=== PATIENT | male | born 1940 | race Caucasian/White ===

== ENCOUNTER 2018-09-06 09:07 | Emergency (ER) | payer OTHER, BC ==
[2018-09-06] MEDS ORDERED: LIDOCAINE 1% MPF 30 ML VIAL ONE (09:29)
--- NOTE | 2018-09-06 09:49 | RAD REPORT ---
EXAM DESCRIPTION: CT - Facial Bones W/ Mpr - 09/06/2018 9:32 am CLINICAL HISTORY: Fall, facial trauma COMPARISON: CT head same date TECHNIQUE: Axial 2 millimeter thick images of the facial bones were obtained with sagittal and coron al reconstruction imaging. All CT scans are performed using dose optimization technique as appropriate and may include automated exposure control or mA/KV adjustment according to patient size. FINDINGS: Mastoid air cells are clear. No skull base fracture. Minimal chronic mucosal thickening of the maxillary sinuses noted. Trace amount of fluid is present in the left maxillary sinus. This is f avored to be unrelated to the current trauma presentation. No sinus wall or orbital wall fracture is identifiable. Zygomatic arches are intact. No globe or orbital content injury seen. Patient has soft tissue injury of the nose. Nondisplaced nasal bone fracture is present. Deviation of the nasal septum is present without fracture identifiable. This is likely a chronic presentation for the patient. IMPRESSION: Nondisplaced nasal bone fracture with soft tissue wound. No other facial fracture confirmed. Minimal sinus disease is present.
--- NOTE | 2018-09-06 09:52 | RAD REPORT ---
EXAM DESCRIPTION: CT - CTHCSPWOC - 09/06/2018 9:32 am CLINICAL HISTORY: Trip and fall, head and neck injury COMPARISON: None. TECHNIQUE: Axial 5 mm thick images of the head were obtained. Axial 2 mm thick images of the cervic al spine were obtained with sagittal and coronal reconstruction images generated and reviewed. All CT scans are performed using dose optimization technique as appropriate and may include automated exposure control or mA/KV adjustment according to patient size. FINDINGS: No intracranial hemorrhage, mass, edema or acute intracranial finding. No suspicion for ac fernando infarction. Minimal atrophy and chronic ischemic changes present. Ventricles are in proportion to any volume loss. Mastoid air cells are clear. No acute paranasal sinus finding. No globe or orbit ab normality seen. Soft tissue injury is seen in the upper nose with no displaced nasal bone fracture se en. Patient has nasal septum deviation that is chronic. Cervical bodies are normal in height. No fracture changes. There is minimal retrolisthesis of C5 on C 6. C5-6 degenerative disc disease is present. C6-7 disc space narrowing also present. No fracture or acute bony abnormality. Prominent facet joint degenerative changes are present. Mild bony foraminal e ncroachment on the left at C3-4, moderate foraminal encroachment right side C4-5 and moderate bilater al C5-6 foraminal encroachment. Moderate C6-7 bony foraminal encroachment present. No paraspinal mass or hematoma. IMPRESSION: No hemorrhage, edema or acute intracranial finding. Mild atrophy and chronic ischemic ch anges are present. Nasal bone and soft tissue injury evident. Facial bone, sinus and/or but findings are separately deta iled. Cervical spine degenerative change present as detailed. No fracture or acute finding.
--- NOTE | 2018-09-06 13:12 | ER ---
Nurse's Notes [facility] Name: Michael Laboy Age: 78 yrs Sex: Male : 1940 Arrival Date: 09/06/2018 Time: 09:08 Bed 5 Private MD: Diagnosis: Superficial injury of head;Concussion;Facial Laceration Presentation: 09/06 09:11 Presenting complaint: Patient states: Mechanical fall from standing, landed on left hb side of face. Negative LOC. Laceration to nose, bottom lip, and skin tear to top of left wrist noted. Care prior to arrival: None. Mechanism of Injury: Fall from standing position. 09:11 Acuity: ELIZABETH 2 09:11 Method Of Arrival: Ambulatory 09:11 Trauma event details: Injury occurred in the [facility], Injury occurred: at home. Injury occurred: September 06, 2018. 09:34 Transition of care: patient was not received from another setting of care. Onset of ph symptoms was September 06, 2018. Risk Assessment: Do you want to hurt yourself or someone else? Patient reports no desire to harm self or others. Initial Sepsis Screen: Does the patient meet any 2 criteria? No. Patient's initial sepsis screen is negative. Does the patient have a suspected source of infection? No. Patient's initial sepsis screen is negative. Trauma Activation: Alert Physician: ED Physician; Name: Dr Sandoval; Notified At: 09:11; Arrived At: 09:11 Physician: General Surgeon; Name: ; Notified At: 09:11; Arrived At: Physician: Radiology; Name: Kamryn Raines; Notified At: 09:11; Arrived At: 09:12 Physician: Respiratory; Name: ; Notified At: 09:11; Arrived At: Physician: Lab; Name: ; Notified At: 09:11; Arrived At: Historical: - Allergies: 09:19 PENICILLINS; hb - Home Meds: 09:19 Lisinopril Oral [Active]; hb - PMHx: 09:19 Hypertension; hb - PSHx: 09:19 Appendectomy; Cholecystectomy; shoulder; hb - Immunization history:: Last tetanus immunization: unknown. - Social history:: Smoking status: Patient/guardian denies using tobacco. - Family history:: not pertinent. - Ebola Screening: : No symptoms or risks identified at this time. - Hospitalizations: : No recent hospitalization is reported. Screenin:18 Abuse screen: Denies threats or abuse. Denies injuries from another. Tuberculosis hb screening: No symptoms or risk factors identified. 09:34 Nutritional screening: No deficits noted. Fall Risk Fall in past 12 months (25 points). ph No secondary diagnosis (0 pts). No IV (0 pts). Ambulatory Aid- None/Bed Rest/Nurse Assist (0 pts). Gait- Normal/Bed Rest/Wheelchair (0 pts) Mental Status- Oriented to own ability (0 pts). Total Guzman Fall Scale indicates Low Risk Score (25-44 pts). Fall prevention measures have been instituted. Side Rails Up X 2 Family Present and informed to notify staff if they need to leave bedside As available Patient and Family Educated on Fall Prevention Program and strategies. Primary Survey: 09:17 A: Airway: patent, No supplemental oxygen in use on arrival. Oral cavity: clear, hb Trachea midline. Breathing/Chest: Respiratory pattern: regular, Respiratory effort: spontaneous, unlabored, Chest inspection: symmetrical rise and fall of the chest. Circulation: Skin color: pink, Skin temperature: warm, dry. Disability Alert. 10:57 Reassessment Breathing/Chest Respiratory pattern Regular Respiratory effort Spontaneous ph Unlabored Disability Alert. Secondary Survey: 10:58 HEENT: Face Other lacerations noted to nose and lower lip. Gastrointestinal: No ph deficits noted. Musculoskeletal: No deficits noted. Injury Description: Laceration sustained to nose and mouth is 0.5 to 2.5 cm long. Assessment: 09:30 General: Appears in no apparent distress. uncomfortable, Behavior is calm, cooperative, ph appropriate for age. Pain: Complains of pain in face. Neuro: Level of Consciousness is awake, alert, obeys commands, Oriented to person, place, time, situation, Denies blurred vision dizziness. Cardiovascular: Capillary refill < 3 seconds Patient's skin is warm and dry. Respiratory: Airway is patent Respiratory effort is even, unlabored, Respiratory pattern is regular, symmetrical, Denies shortness of breath pain with respiration. GI: No signs and/or symptoms were reported involving the gastrointestinal system. Patient currently denies nausea, vomiting. Derm: Skin is healthy with good turgor, Skin is pink, warm \\T\\ dry. Musculoskeletal: Circulation, motion, and sensation intact. Range of motion: intact in all extremities. Injury Description: Laceration sustained to nose and mouth. 10:50 Reassessment: Patient appears in no apparent distress at this time. Patient is alert, ph oriented x 3, equal unlabored respirations, skin warm/dry/pink. Pt ambulated to restroom w/ steady gait, reports "a little" dizziness, denies nausea or SOB. 11:25 Reassessment: Patient appears in no apparent distress at this time. Patient and/or ph family updated on plan of care and expected duration. Pain level reassessed. Patient is alert, oriented x 3, equal unlabored respirations, skin warm/dry/pink. ERP at bedside to suture lacerations, pt tolerating well. 12:24 Reassessment: Patient appears in no apparent distress at this time. Patient and/or ph family updated on plan of care and expected duration. Pain level reassessed. Patient is alert, oriented x 3, equal unlabored respirations, skin warm/dry/pink. Skin tear to L wrist/forearm cleaned and closed w/ steri-strips, pt tolerated well, awaiting d/c, at bedside. 13:20 Reassessment: Patient appears in no apparent distress at this time. Patient and/or ph family updated on plan of care and expected duration. Pain level reassessed. Patient is alert, oriented x 3, equal unlabored respirations, skin warm/dry/pink. Pt c/o pain in L rib area that is worse w/ deep breathing, ERP notified, CXR ordered, d/c pending CXR. 14:00 Reassessment: Patient appears in no apparent distress at this time. Patient and/or ph family updated on plan of care and expected duration. Pain level reassessed. Patient is alert, oriented x 3, equal unlabored respirations, skin warm/dry/pink. D/C pending CXR results. 14:55 Reassessment: Patient appears in no apparent distress at this time. Patient and/or ph family updated on plan of care and expected duration. Pain level reassessed. Patient is alert, oriented x 3, equal unlabored respirations, skin warm/dry/pink. Pt d/c home w/ SO. Vital Signs: 09:16 BP 162 / 69; Pulse 88; Resp 17; Temp 98; Pulse Ox 100% on R/A; Weight 86.18 kg; Height hb 5 ft. 9 in. (175.26 cm); Pain 5/10; 10:05 BP 158 / 68; Pulse 81; Resp 18; Pulse Ox 98% on R/A; ph 11:15 BP 142 / 78; Pulse 82; Resp 18; Pulse Ox 98% ; ph 12:30 BP 136 / 72; Pulse 75; Resp 18; Pulse Ox 99% on R/A; ph 13:32 BP 134 / 70; Pulse 78; Resp 18; Temp 97.6; Pulse Ox 99% on R/A; ph 14:30 BP 135 / 68; Pulse 76; Resp 18; Temp 97.8; Pulse Ox 99% on R/A; ph 09:16 Body Mass Index 28.06 (86.18 kg, 175.26 cm) hb [place] Coma Score: 09:16 Eye Response: spontaneous(4). Verbal Response: oriented(5). Motor Response: obeys hb commands(6). Total: 15. 10:05 Eye Response: spontaneous(4). Verbal Response: oriented(5). Motor Response: obeys ph commands(6). Total: 15. 11:15 Eye Response: spontaneous(4). Verbal Response: oriented(5). Motor Response: obeys ph commands(6). Total: 15. 12:30 Eye Response: spontaneous(4). Verbal Response: oriented(5). Motor Response: obeys ph commands(6). Total: 15. 13:32 Eye Response: spontaneous(4). Verbal Response: oriented(5). Motor Response: obeys ph commands(6). Total: 15. 14:30 Eye Response: spontaneous(4). Verbal Response: oriented(5). Motor Response: obeys ph commands(6). Total: 15. Trauma Score (Adult): 09:16 Eye Response: spontaneous(1); Verbal Response: oriented(1); Motor Response: obeys hb commands(2); Systolic BP: > 89 mm Hg(4); Respiratory Rate: 10 to 29 per min(4); Juan Score: 15; Trauma Score: 12 10:05 Eye Response: spontaneous(1); Verbal Response: oriented(1); Motor Response: obeys ph commands(2); Systolic BP: > 89 mm Hg(4); Respiratory Rate: 10 to 29 per min(4); Juan Score: 15; Trauma Score: 12 11:15 Eye Response: spontaneous(1); Verbal Response: oriented(1); Motor Response: obeys ph commands(2); Systolic BP: > 89 mm Hg(4); Respiratory Rate: 10 to 29 per min(4); [place] Score: 15; Trauma Score: 12 12:30 Eye Response: spontaneous(1); Verbal Response: oriented(1); Motor Response: obeys ph commands(2); Systolic BP: > 89 mm Hg(4); Respiratory Rate: 10 to 29 per min(4); Juan Score: 15; Trauma Score: 12 13:32 Eye Response: spontaneous(1); Verbal Response: oriented(1); Motor Response: obeys ph commands(2); Systolic BP: > 89 mm Hg(4); Respiratory Rate: 10 to 29 per min(4); Juan Score: 15; Trauma Score: 12 14:30 Eye Response: spontaneous(1); Verbal Response: oriented(1); Motor Response: obeys ph commands(2); Systolic BP: > 89 mm Hg(4); Respiratory Rate: 10 to 29 per min(4); Juan Score: 15; Trauma Score: 12 ED Course: 09:08 Patient arrived in ED. as 09:11 Aleksandar Sandoval MD is Attending Physician. rn 09:11 Naveed Jimenez, ROGELIO is Primary Nurse. bp 09:16 Triage completed. hb 09:18 Arm band placed on right wrist. hb 09:27 CT completed. Patient tolerated procedure well. Patient moved to CT via stretcher. sj Patient moved back from CT. 09:32 CT Head C Spine In Process Unspecified. EDMS 09:32 CT Facial Bones W/O Con In Process Unspecified. EDMS 09:34 Patient maintains SpO2 saturation greater than 95% on room air. ph 09:35 Patient has correct armband on for positive identification. Bed in low position. Call ph light in reach. Side rails up X 1. Pulse ox on. NIBP on. Warm blanket given. 09:35 Thermoregulation: warm blanket given to patient. ph 09:43 EKG done, by lead medical technologist. reviewed by Aleksandar Sandoval MD. at1 10:45 Wound care: to laceration located on face and nose was cleaned with irrigated with jb1 normal saline, Patient tolerated well. 11:45 Assist provider with laceration repair on mouth and nose that was between 2.6 to 7.5 cm ph using sutures. Set up tray. Performed by Roger BYRNE Dressed with Neosporin, Patient tolerated well. 12:22 Dressings: Steri strips 1/8 " X 1;. Wound care: to skin tear located on dorsal aspect ph of left forearm was cleaned with Hibiclens, dressed with. 14:16 XRAY Chest (1 view) In Process Unspecified. EDMS 14:57 Patient did not have IV access during this emergency room visit. ph Administered Medications: 11:20 Drug: Lidocaine (1 %) 1 vials Volume: 5 ml; Route: Infiltration; ph 14:58 Follow up: Response: No adverse reaction ph 13:25 Drug: Tetanus-Diphtheria Toxoid Adult 0.5 ml {Solar Installer Technician: LUVHAN. Exp: ph 07/24/2021. Lot #: [id number]. } Route: IM; Site: left deltoid; 14:57 Follow up: Response: No adverse reaction ph Intake: 09:35 PO: 0ml; Total: 0ml. ph 10:05 PO: 0ml; Total: 0ml. ph 13:32 PO: 0ml; Total: 0ml. ph Output: 09:35 Urine: 0ml; Total: 0ml. ph 10:05 Urine: 0ml; Total: 0ml. ph 13:32 Urine: 0ml; Total: 0ml. ph Outcome: 13:12 Discharge ordered by . rn 14:55 Discharged to home ambulatory, with significant other. ph 14:55 Condition: good 14:55 Discharge instructions given to patient, significant other, Instructed on discharge instructions, follow up and referral plans. Demonstrated understanding of instructions, follow-up care. 14:57 Patient's length of stay in the Emergency Department was greater than 2 hours. see ph reassessment tabPatient's length of stay extended due to 14:58 Patient left the ED. ph Signatures: Dispatcher [employer] EDMS Ramón Candelario [email or web address] Yanna Monet Amelia as Nieto, Roman, MD MD rn Jodi Camp, superintendent division EKG Tat1 Maryse Holden RN RN ph Bridget Chua, RN RN Naveed Jimenez RN RN bp Corrections: (The following items were deleted from the chart) 09:18 09:16 BP 162 / 69; Pulse 88bpm; Resp 17bpm; Pulse Ox 100% RA; Temp 98F; Pain 5/10; hb hb 09:32 09:11 Trauma Activation: Alert; ED Physician Dr Sandoval notified at 09:11, hb arrived at 09:11; General Surgeon notified at 09:11; Radiology notified at 09:11; Respiratory notified at 09:11; Lab notified at 09:11 hb 10:57 09:30 Injury Description: Laceration sustained to nose, left cheek and mouth ph ph 11:25 10:50 Reassessment: Patient appears in no apparent distress at this time. Patient is ph alert, oriented x 3, equal unlabored respirations, skin warm/dry/pink. Patient is alert/active/playful, equal unlabored respirations, skin warm/dry/pink. Pt ambulated to restroom w/ steady gait, reports "a little" dizziness, denies nausea or SOB ph
--- NOTE | 2018-09-06 13:12 | EDPHYS ---
Physician Documentation [facility] Name: Michael Laboy Age: 78 yrs Sex: Male : 1940 Arrival Date: 09/06/2018 Time: 09:08 Bed 5 Private MD: ED Physician Aleksandar Sandoval HPI: 09/06 09:16 This 78 yrs old Male presents to ER via Ambulatory with complaints of Fall rn Injury. 09:16 Details of fall: The patient fell from an upright position. Onset: The symptoms/episode rn began/occurred just prior to arrival. Associated injuries: The patient sustained injury to the head. Severity of symptoms: At their worst the symptoms were mild, in the emergency department the symptoms have improved. The patient has not experienced similar symptoms in the past. Reports tripped fell forward, hit face, not on blood thinners, not sure if he passed out or not, unknown tetanus status. Scraped arm but doesn't feel broken, "just skin tear". . Historical: - Allergies: 09:19 PENICILLINS; hb - Home Meds: 09:19 Lisinopril Oral [Active]; hb - PMHx: 09:19 Hypertension; hb - PSHx: 09:19 Appendectomy; Cholecystectomy; shoulder; hb - Immunization history:: Last tetanus immunization: unknown. - Social history:: Smoking status: Patient/guardian denies using tobacco. - Family history:: not pertinent. - Ebola Screening: : No symptoms or risks identified at this time. - Hospitalizations: : No recent hospitalization is reported. ROS: 09:16 Constitutional: Negative for fever, chills, and weight loss, Eyes: Negative for injury, rn pain, redness, and discharge, ENT: + nasal and oral injury Neck: Negative for injury, pain, and swelling, Cardiovascular: Negative for chest pain, palpitations, and edema, Respiratory: Negative for shortness of breath, cough, wheezing, and pleuritic chest pain, Abdomen/GI: Negative for abdominal pain, nausea, vomiting, diarrhea, and constipation, MS/Extremity: Negative for injury and deformity, Skin: + skin tear and abrasions Neuro: Negative for headache, weakness, numbness, tingling, and seizure. Exam: 09:16 Constitutional: This is a well developed, well nourished patient who is awake, alert, rn and in no acute distress. Head/Face: Normocephalic, + mild facial swelling and trauma Eyes: Pupils equal round and reactive to light, extra-ocular motions intact. Lids and lashes normal. Conjunctiva and sclera are non-icteric and not injected. Cornea within normal limits. Periorbital areas with no swelling, redness, or edema. ENT: + nasal swelling with contusion and 3 cm linear superficial laceration along left lateral side. No septal hematoma. 1cm superficial laceration middle of bottom lip, no active bleeding. Neck: NO midline tenderness Cardiovascular: Regular rate and rhythm with a normal S1 and S2. No gallops, murmurs, or rubs. Normal PMI, no JVD. No pulse deficits. Respiratory: Lungs have equal breath sounds bilaterally, clear to auscultation and percussion. No rales, rhonchi or wheezes noted. No increased work of breathing, no retractions or nasal flaring. Abdomen/GI: soft, non-tender MS/ Extremity: Pulses equal, no cyanosis. Neurovascular intact. Full, normal range of motion. Equal circumference. 2cm irregular abrasion/skin tear to left dorsal wrist Neuro: Awake and alert, GCS 15, oriented to person, place, time, and situation. Cranial nerves II-XII grossly intact. Motor strength 5/5 in all extremities. Sensory grossly intact. Cerebellar exam normal. Vital Signs: 09:16 BP 162 / 69; Pulse 88; Resp 17; Temp 98; Pulse Ox 100% on R/A; Weight 86.18 kg; Height hb 5 ft. 9 in. (175.26 cm); Pain 5/10; 10:05 BP 158 / 68; Pulse 81; Resp 18; Pulse Ox 98% on R/A; ph 11:15 BP 142 / 78; Pulse 82; Resp 18; Pulse Ox 98% ; ph 12:30 BP 136 / 72; Pulse 75; Resp 18; Pulse Ox 99% on R/A; ph 13:32 BP 134 / 70; Pulse 78; Resp 18; Temp 97.6; Pulse Ox 99% on R/A; ph 14:30 BP 135 / 68; Pulse 76; Resp 18; Temp 97.8; Pulse Ox 99% on R/A; ph 09:16 Body Mass Index 28.06 (86.18 kg, 175.26 cm) hb Juan Coma Score: 09:16 Eye Response: spontaneous(4). Verbal Response: oriented(5). Motor Response: obeys hb commands(6). Total: 15. 10:05 Eye Response: spontaneous(4). Verbal Response: oriented(5). Motor Response: obeys ph commands(6). Total: 15. 11:15 Eye Response: spontaneous(4). Verbal Response: oriented(5). Motor Response: obeys ph commands(6). Total: 15. 12:30 Eye Response: spontaneous(4). Verbal Response: oriented(5). Motor Response: obeys ph commands(6). Total: 15. 13:32 Eye Response: spontaneous(4). Verbal Response: oriented(5). Motor Response: obeys ph commands(6). Total: 15. 14:30 Eye Response: spontaneous(4). Verbal Response: oriented(5). Motor Response: obeys ph commands(6). Total: 15. Trauma Score (Adult): 09:16 Eye Response: spontaneous(1); Verbal Response: oriented(1); Motor Response: obeys hb commands(2); Systolic BP: > 89 mm Hg(4); Respiratory Rate: 10 to 29 per min(4); Juan Score: 15; Trauma Score: 12 10:05 Eye Response: spontaneous(1); Verbal Response: oriented(1); Motor Response: obeys ph commands(2); Systolic BP: > 89 mm Hg(4); Respiratory Rate: 10 to 29 per min(4); [place] Score: 15; Trauma Score: 12 11:15 Eye Response: spontaneous(1); Verbal Response: oriented(1); Motor Response: obeys ph commands(2); Systolic BP: > 89 mm Hg(4); Respiratory Rate: 10 to 29 per min(4); [place] Score: 15; Trauma Score: 12 12:30 Eye Response: spontaneous(1); Verbal Response: oriented(1); Motor Response: obeys ph commands(2); Systolic BP: > 89 mm Hg(4); Respiratory Rate: 10 to 29 per min(4); Juan Score: 15; Trauma Score: 12 13:32 Eye Response: spontaneous(1); Verbal Response: oriented(1); Motor Response: obeys ph commands(2); Systolic BP: > 89 mm Hg(4); Respiratory Rate: 10 to 29 per min(4); Juan Score: 15; Trauma Score: 12 14:30 Eye Response: spontaneous(1); Verbal Response: oriented(1); Motor Response: obeys ph commands(2); Systolic BP: > 89 mm Hg(4); Respiratory Rate: 10 to 29 per min(4); Juan Score: 15; Trauma Score: 12 Laceration: 11:58 Wound Repair of 3cm ( 1.2in ) subcutaneous laceration to nose. Irregularly shaped.. cp Distal neuro/vascular/tendon intact. Anesthesia: Wound infiltrated with 6 mls of 1% lidocaine. Wound prep: Moderate cleansing by me. Skin closed with 7 6-0 Prolene using interrupted sutures and sterile technique. Dressed with Bacitracin. Patient tolerated well. 11:58 Wound Repair of 1cm ( 0.4in ) subcutaneous laceration to inner lower lip. Linear cp shaped.. Distal neuro/vascular/tendon intact. Anesthesia: Wound infiltrated with 1 mls of 1% lidocaine. Wound prep: Moderate cleansing by me. Skin closed with 4 5-0 Vicryl using interrupted sutures and sterile technique. Patient tolerated well. MDM: 09:11 Patient medically screened. rn 10:33 ED course: Ct head/face/cspine only show small non-displaced nasal fracture, will rn observe for superficial head injury, will require sutures of inner lip and nasal laceration.. 12:20 Differential diagnosis: abrasion, closed head injury, contusion. rn 13:11 Data reviewed: vital signs, nurses notes, radiologic studies, CT scan, and as a result, rn I will discharge patient. Counseling: I had a detailed discussion with the patient and/or guardian regarding: the historical points, exam findings, and any diagnostic results supporting the discharge/admit diagnosis, radiology results, the need for outpatient follow up, to return to the emergency department if symptoms worsen or persist or if there are any questions or concerns that arise at home. Response to treatment: the patient's condition has returned to base line, and as a result, I will discharge patient. Special discussion: Based on the patient's history, exam and DX evaluation, there is no indication for emergent intervention or inpatient [place]. It is understood by the patient/guardian that if the SXs persist or worsen they need to return immediately for re-evaluation. I discussed with the patient/guardian in detail that at this point there is no indication for admission to the hospital. It is understood, however, that if the symptoms persist or worsen the patient needs to return immediately for re-evaluation. ED course: Observed for 4 hours in ER, no new symptoms, back to baseline, sutured, skin tear cleansed and steri-stripped, will dc home with return precautions.. 09/06 09:15 Order name: CT Head C Spine; Complete Time: 09:55 rn 09/06 09:15 Order name: CT Facial Bones W/O Con; Complete Time: 09:55 rn 09/06 09:15 Order name: EKG; Complete Time: 09:16 rn 09/06 13:19 Order name: XRAY Chest (1 view); Complete Time: 17:47 rn 09/06 09:15 Order name: EKG - Nurse/Tech; Complete Time: 09:44 rn 09/06 09:16 Order name: Suture Tray at Bedside; Complete Time: 09:23 rn Administered Medications: 11:20 Drug: Lidocaine (1 %) 1 vials Volume: 5 ml; Route: Infiltration; ph 14:58 Follow up: Response: No adverse reaction ph 13:25 Drug: Tetanus-Diphtheria Toxoid Adult 0.5 ml {[employer] Operator: [employer]. Exp: ph 07/24/2021. Lot #: [id number]. } Route: IM; Site: left deltoid; 14:57 Follow up: Response: No adverse reaction ph Disposition: 17:47 Co-signature as Attending Physician, Aleksandar Sandoval MD. rn Disposition: 09/06/18 13:12 Discharged to Home. Impression: Superficial injury of head, Concussion, Facial Laceration. - Condition is Stable. - Discharge Instructions: Concussion, Adult, Head Injury, Adult, Facial Laceration, Skin Tear Care, Sutured Wound Care. - Medication Reconciliation Form, Thank You Letter, Antibiotic Education, Prescription Opioid Use form. - Follow up: Private Physician; When: As needed; Reason: Recheck today's complaints, Re-evaluation by your physician. - Problem is new. - Symptoms have improved. Signatures: Dispatcher [employer] EDMS Aleksandar Sandoval MD MD rn Hall, Patricia, RN RN ph Roger Roche PA PA cp Baxter, Heather, RN RN Corrections: (The following items were deleted from the chart) 14:58 13:12 09/06/2018 13:12 Discharged to Home. Impression: Superficial injury of head; ph Concussion; Facial Laceration. Condition is Stable. Forms are Medication Reconciliation Form, Thank You Letter, Antibiotic Education, Prescription Opioid Use. Follow up: Private Physician; When: As needed; Reason: Recheck today's complaints, Re-evaluation by your physician. Problem is new. Symptoms have improved. rn
--- NOTE | 2018-09-06 13:27 | EKG ---
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
[2018-09-06] MEDS ORDERED: TETANUS & DIPHTHERIA TOX,ADULT 0.5 ML VIAL ONE (13:28)
--- NOTE | 2018-09-06 14:49 | RAD REPORT ---
EXAM DESCRIPTION: RAD - Chest Single View - 09/06/2018 2:16 pm CLINICAL HISTORY: Chest pain, blunt force trauma COMPARISON: December 2009 chest film TECHNIQUE: AP portable chest image was obtained 1324 hours . FINDINGS: Lung volumes are low. Right hemidiaphragm elevation is present. A similar pattern was seen in 2010. No acute lung parenchymal process. Acute failure or volume overload are not suspected. Lung base pleural effusions or infiltrates could be masked. Heart size is normal range for shallow inspir ation portable exam. No measurable pleural effusion and no pneumothorax. No acute bony abnormality se en. No acute aortic findings suspected. IMPRESSION: No acute cardiopulmonary process. No suspicious change from 2009.
== END 2018-09-06 14:58 | disposition home or self-care (01) ==
LOC: ER 09:07
PROC: 0JQ10ZZ Repair Face Subcutaneous Tissue and Fascia, Open Approach (ICD-10-PCS; principal; 2018-09-06)
PROC: 0CQ1XZZ Repair Lower Lip, External Approach (ICD-10-PCS; 2018-09-06)
DX: S06.0X0A Concussion without loss of consciousness, initial encounter (principal); S01.511A Laceration without foreign body of lip, initial encounter; W01.0XXA Fall on same level from slipping, tripping and stumbling without subsequent striking against object, initial encounter; Y93.9 Activity, unspecified; Y92.9 Unspecified place or not applicable; Z88.0 Allergy status to penicillin; Z23 Encounter for immunization; I10 Essential (primary) hypertension
CPT/HCPCS: 70450; 70486; 71045; 72125; 76377; 90714; 93005; 99285

== ENCOUNTER 2018-09-13 08:34 | Emergency (ER) | payer OTHER, BC ==
--- OUTSIDE RECORDS SUMMARY | 2018-09-13 08:36 | XMS REPORT | Summary of Care ---
:1940 Author Organization [facility] Outpatient Imaging - [facility] Address [address] [place] [id number]- Encounter HQ Derickntr_lance(FIN) [id number] Date(s): 04/23/17 - 04/23/17 [facility] Outpatient Imaging - [address] [place] [address]- Discharge Disposition: Home or Self Care Attending Physician: Mahendra Dietz MD Vital Signs No data available for this section Problem List Condition Effective Dates Status Health Status Informant Hemorrhoids(Confirmed) Resolved Hernia(Confirmed) Resolved Loss of hair(Confirmed) Resolved Numbness(Confirmed) Resolved Allergies, Adverse Reactions, Alerts Substance Reaction Severity Status penicillins Active Medications No data available for this section Results No data available for this section Immunizations No data available for this section Procedures Procedure Date Related Diagnosis Body Site Appendectomy1 Colonoscopy2 EKG3 Excision of gallbladder4 Manual repair of hernia5, 6 Rotator cuff repair7 [id number] procedure in Social History Social History Type Response Substance Abuse Use: None. Sexual 1 Employment/School Status: Employed. Work/School description: [employer]. Alcohol Never Smoking Status Never smoker; Exposure to Tobacco Smoke None; Cigarette Smoking Last 365 Days No; Reg Smoking Cessation Counseling No 13 children Assessment and Plan No data available for this section
--- OUTSIDE RECORDS SUMMARY | 2018-09-13 08:36 | XMS REPORT | Summary of Care ---
:1940 Author Organization [facility] Primary Care [facility] Address [address], [address] [place] [address]- Encounter HQ Terry_lance(FIN) [id number] Date(s): 04/30/18 - 04/30/18 [facility] [address] [place] [phone] Discharge Disposition: Home or Self Care Attending Physician: Mahendra Dietz MD Vital Signs Most recent to oldest [Reference Range]: 1 Height 175.26 cm (04/30/18 2:01 PM) Temperature Oral [96.4-99.1 DegF] 98.0 DegF (04/30/18 2:01 PM) Blood Pressure [90-140/60-90 mmHg] 144/78 mmHg *HI* (04/30/18 2:01 PM) Peripheral Pulse Rate [60-100 bpm] 63 bpm (04/30/18 2:01 PM) Weight 87.182 kg (04/30/18 2:01 PM) Body Mass Index 28.38 m2 (04/30/18 2:01 PM) Problem List Condition Effective Dates Status Health Status Informant Hemorrhoids(Confirmed) Resolved Hernia(Confirmed) Resolved Loss of hair(Confirmed) Resolved Numbness(Confirmed) Resolved Allergies, Adverse Reactions, Alerts Substance Reaction Severity Status penicillins Active Medications Lumigan 0.01% ophthalmic solution 1 drp, BOTH EYES, Bedtime, # 5 mL, 4 Refill(s) Start Date: 04/30/18 Status: Ordered Results No data available for this section Immunizations Given and Recorded Vaccine Date Status Refusal Reason influenza virus vaccine, inactivated 09/07/17 Given Procedures Procedure Date Related Diagnosis Body Site Status Collection of venous blood by 04/30/18 Completed venipuncture Appendectomy1 Completed Colonoscopy2 Completed EKG3 Completed Excision of gallbladder4 Completed Manual repair of hernia5, 6 Completed Rotator cuff repair7 Completed [id number] procedure in [id number] Social History Social History Type Response Substance Abuse Use: None. Sexual 1 Employment/School Status: Employed. Work/School description: [employer]. Alcohol Never Smoking Status Never smoker; Exposure to Tobacco Smoke None; Cigarette Smoking Last 365 Days No; Reg Smoking Cessation Counseling No entered on: 04/30/18 13 children Assessment and Plan No data available for this section
--- OUTSIDE RECORDS SUMMARY | 2018-09-13 08:36 | XMS REPORT | Continuity of Care Document ---
:1940 Author Organization Interface Problems Problem Status Onset Classification Date Comments Source Date Reported Hemorrhoids Resolved Problem 05/03/2018 [facility] Hernia Resolved Problem 05/03/2018 [facility] Loss of hair Resolved Problem 05/03/2018 [facility] Numbness Resolved Problem 05/03/2018 [facility] Medications Medication Details Route Status Patient Ordering Order Source Instructions Provider Date bimatoprost 0.1 MG/ML 1 drp, BOTH Active 04/30/ Ophthalmic Solution EYES, 2018 [facility] [Lumigan] Bedtime, # Group 5 mL, 4 Refill(s) Hydrochlorothiazide See Active 10/09[facility] 12.5 MG / Lisinopril Instruction 2016 Medical 10 MG Oral Tablet s, TAKE 1 Group TABLET BY MOUTH DAILY., # 90 tab, 3 Refill(s), Pharmacy: [facility] [id number] Allergies, Adverse Reactions, Alerts Substance Category Reaction Severity Reaction Status Date Comments Source type Reported penicillins Assertion Drug Active allergy [facility] Group Immunizations Immunization Date Site Status Last Updated Comments Source Given influenza virus Right completed [facility] vaccine, 7 Deltoid Group inactivated Results Order Results Value Reference Date Interpretation Comments Source Name Range Humerus 2 Humerus 2 EXAM: XR LEFT HUMERUS 2 VIEWS 04/23 - [facility] views DX views DX - [place] DATE: 04/23/2017 2:57 PM CDT Read by: Charla Jiménez MD Dictated Date/time: 04/23/17 16:52 Electronically Signed by: Charla Jiménez MD 04/23/17 16:52 FINAL REPORT INDICATION: S42.213A Unspecified displaced fracture of surgical neck of unspecified humerus, initial encounter for closed fracture - S42.213A Unspecified displaced fracture of surgical neck of unspe cified humerus, initial encounter for closed fracture COMPARISON: None TECHNIQUE: AP and lateral radiographs of the humerus FINDINGS: No acute fracture or malalignment is identified. No soft tissue abnormality is identified. IMPRESSION: No acute abnormality. Vital Signs Vital Sign Value Date Comments Source BMI Calculated 28.38 04/30/2018 [facility] Weight 87.182 04/30/2018 [facility] Height 175.26 cm 04/30/2018 [facility] Systolic (mm Hg) 144 04/30/2018 [facility] Diastolic (mm Hg) 78 04/30/2018 [facility] Heart Rate 63 04/30/2018 [facility] Temperature Oral (F) 98.0 F 04/30/2018 [facility] Encounters Location Location Encounter Encounter Reason Attending ADM DC Status Source Details Type Number For Provider Date Date Visit Outpatient [id number] SHARAN04/23 [facility] Outpt Diag [id number] 04/23 [facility] [place] Outpatient [id number] SHARAN05/03 [facility] [place] Outpatient [id number] SHARAN09/07 [facility] Phone [phone] 10/09 10/11 Primary Message /2016 [facility] [place] Outpatient [id number] 04/30 [facility] Outpatient [id number] Sharan04/30 [facility] [place] Procedures Procedure Code Date Perfomer [place] [id number] 04/30/2018 [facility] venous blood by Group venipuncture Appendectomy<sup>1 [id number] 1950 [facility] </sup> [facility] Colonoscopy<sup>2< [id number] 2009 [facility] /sup> [facility] EKG<sup>3</sup> [id number] 1999 [facility] Excision of [id number] 1989 [facility] gallbladder<sup>4< [facility] /sup> Manual repair of [id number] [facility] hernia<sup>5, procedure in [facility] </sup> 1992 Rotator cuff [id number] 1989 [facility] repair<sup>7</sup> [facility] Appendectomy<sup>1 [id number] 1950 Medical </sup> Group Colonoscopy<sup>2< [id number] 2009 Medical /sup> Group EKG<sup>3</sup> [id number] 1999 Medical Group Excision of 20169974 1989 Medical gallbladder<sup>4< Group /sup> Manual repair of [id number] Medical hernia<sup>5, procedure in Group 6</sup> 1992 Rotator cuff [id number] 1989 Medical repair<sup>7</sup> Group
--- OUTSIDE RECORDS SUMMARY | 2018-09-13 08:36 | XMS REPORT | Summary of Care ---
:1940 Author Organization [facility] Primary Care [place] Address [address] [place] [address]- Encounter HQ Derickntr_aliwero(FIN) [id number] Date(s): 10/09/17 - 10/10/17 [facility] [address] [place] [address] [phone] Vital Signs No data available for this section Problem List Condition Effective Dates Status Health Status Informant Hemorrhoids(Confirmed) Resolved Hernia(Confirmed) Resolved Loss of hair(Confirmed) Resolved Numbness(Confirmed) Resolved Allergies, Adverse Reactions, Alerts Substance Reaction Severity Status penicillins Active Medications hydrochlorothiazide-lisinopril 12.5 mg-10 mg oral tablet See Instructions, TAKE 1 TABLET BY MOUTH DAILY., # 90 tab, 3 Refill(s), Pharmacy : [facility] [id number] Start Date: 10/09/17 Status: Ordered Results No data available for this section Immunizations Given and Recorded Vaccine Date Status Refusal Reason influenza virus vaccine, inactivated 09/07/17 Given Procedures Procedure Date Related Diagnosis Body Site Appendectomy1 Colonoscopy2 EKG3 Excision of gallbladder4 Manual repair of hernia5, 6 Rotator cuff repair7 [id number] procedure in [id number] Social History Social History Type Response Substance Abuse Use: None. Sexual 1 Employment/School Status: Employed. Work/School description: [employer]. Alcohol Never Smoking Status Never smoker; Exposure to Tobacco Smoke None; Cigarette Smoking Last 365 Days No; Reg Smoking Cessation Counseling No 13 children Assessment and Plan No data available for this section
--- NOTE | 2018-09-13 09:29 | EDPHYS ---
Physician Documentation [facility] Name: Michael Laboy Age: 78 yrs Sex: Male : 1940 Arrival Date: 09/13/2018 Time: 08:36 Bed 23 Private MD: ED Physician Roger Snider HPI: 09/13 09:26 This 78 yrs old Male presents to ER via Ambulatory with complaints of Suture jr8 Removal. 09:26 The patient has sutures on the face. Previous treatment: The patient was initially jr8 treated 7 day(s) ago. Sutures/saman progress: The patient has no c/o's. The wound is well-healing with no redness, swelling, discharge, or dehiscence reported. The patient has not experienced similar symptoms in the past. The patient has been recently seen by a physician:. had a fall causing laceration to nose. Repaired here. has been 7 days since incident . Historical: - Allergies: 08:54 PENICILLINS; ss - Immunization history:: Adult Immunizations up to date. - Social history:: Smoking status: Patient/guardian denies using tobacco. - Ebola Screening: : Patient denies exposure to infectious person Patient denies travel to an Ebola-affected area in the 21 days before illness onset. ROS: 09:26 Eyes: Negative for injury, pain, redness, and discharge, ENT: Negative for injury, jr8 pain, and discharge, Neck: Negative for injury, pain, and swelling, Cardiovascular: Negative for chest pain, palpitations, and edema, Respiratory: Negative for shortness of breath, cough, wheezing, and pleuritic chest pain, Abdomen/GI: Negative for abdominal pain, nausea, vomiting, diarrhea, and constipation, Back: Negative for injury and pain, MS/Extremity: Negative for injury and deformity, Neuro: Negative for headache, weakness, numbness, tingling, and seizure. 09:26 Skin: Positive for laceration(s). Exam: 09:26 Head/Face: Normocephalic, atraumatic. Eyes: Pupils equal round and reactive to light, jr8 extra-ocular motions intact. Lids and lashes normal. Conjunctiva and sclera are non-icteric and not injected. Cornea within normal limits. Periorbital areas with no swelling, redness, or edema. ENT: Nares patent. No nasal discharge, no septal abnormalities noted. Tympanic membranes are normal and external auditory canals are clear. Oropharynx with no redness, swelling, or masses, exudates, or evidence of obstruction, uvula midline. Mucous membranes moist. Cardiovascular: Regular rate and rhythm with a normal S1 and S2. No gallops, murmurs, or rubs. Normal PMI, no JVD. No pulse deficits. Respiratory: Lungs have equal breath sounds bilaterally, clear to auscultation and percussion. No rales, rhonchi or wheezes noted. No increased work of breathing, no retractions or nasal flaring. Abdomen/GI: Soft, non-tender, with normal bowel sounds. No distension or tympany. No guarding or rebound. No evidence of tenderness throughout. MS/ Extremity: Pulses equal, no cyanosis. Neurovascular intact. Full, normal range of motion. Neuro: Awake and alert, GCS 15, oriented to person, place, time, and situation. Cranial nerves II-XII grossly intact. Motor strength 5/5 in all extremities. Sensory grossly intact. Cerebellar exam normal. Normal gait. 09:26 Skin: Wound recheck: Staple laceration closure: the wound is healing well, the edges are well approximated, no evidence of dehiscence, no drainage, no erythema, no swelling. Vital Signs: 08:54 BP 155 / 71; Pulse 56; Resp 16; Temp 98.0(TE); Pulse Ox 100% on R/A; Weight 86.18 kg; ss Height 5 ft. 9 in. (175.26 cm); Pain 0/10; 08:54 Body Mass Index 28.06 (86.18 kg, 175.26 cm) Procedures: 09:26 Suture/Staple removal: Removed 6 sutures, from nose, site appears well healed, Patient jr8 tolerated well. MDM: 08:52 Patient medically screened. jr8 09:26 Data reviewed: vital signs, nurses notes, and as a result, I will discharge patient. dani Data interpreted: Pulse oximetry: on room air is 100 %. Interpretation: normal. Counseling: I had a detailed discussion with the patient and/or guardian regarding: the historical points, exam findings, and any diagnostic results supporting the discharge/admit diagnosis, the need for outpatient follow up, a family practitioner, to return to the emergency department if symptoms worsen or persist or if there are any questions or concerns that arise at home. Administered Medications: No medications were administered Disposition: 12:21 Co-signature as Attending Physician, Roger Snider MD I agree with the assessment and [facility] plan of care. Disposition: 09/13/18 09:28 Discharged to Home. Impression: Encounter for removal of sutures. - Condition is Stable. - Discharge Instructions: Suture Removal, Care After. - Medication Reconciliation Form, Thank You Letter, Antibiotic Education, Prescription Opioid Use form. - Follow up: Private Physician; When: As needed; Reason: Recheck today's complaints, Continuance of care, Re-evaluation by your physician. - Problem is new. - Symptoms have improved. Signatures: Roger Snider MD MD cha Smirch, Shelby, RN RN Phil Taylor PA PA jr8 Corrections: (The following items were deleted from the chart) 10:00 09:28 09/13/2018 09:28 Discharged to Home. Impression: Encounter for removal of ss sutures. Condition is Stable. Forms are Medication Reconciliation Form, Thank You Letter, Antibiotic Education, Prescription Opioid Use. Follow up: Private Physician; When: As needed; Reason: Recheck today's complaints, Continuance of care, Re-evaluation by your physician. Problem is new. Symptoms have improved. jr8
--- NOTE | 2018-09-13 09:29 | ER ---
Nurse's Notes [facility] Name: Michael Laboy Age: 78 yrs Sex: Male : 1940 Arrival Date: 09/13/2018 Time: 08:36 Bed 23 Private MD: Diagnosis: Encounter for removal of sutures Presentation: 09/13 08:52 Presenting complaint: Patient states: here to have sutures removed from nose and inner ss upper lip. Sutures placed 7 days ago. Pt denies pain. Transition of care: patient was not received from another setting of care. Onset of symptoms was September 06, 2018. Risk Assessment: Do you want to hurt yourself or someone else? Patient reports no desire to harm self or others. Initial Sepsis Screen: Does the patient meet any 2 criteria? No. Patient's initial sepsis screen is negative. Does the patient have a suspected source of infection? No. Patient's initial sepsis screen is negative. Care prior to arrival: None. 08:52 Method Of Arrival: Ambulatory ss 08:52 Acuity: ELIZABETH 5 ss Historical: - Allergies: 08:54 PENICILLINS; ss - Immunization history:: Adult Immunizations up to date. - Social history:: Smoking status: Patient/guardian denies using tobacco. - Ebola Screening: : Patient denies exposure to infectious person Patient denies travel to an Ebola-affected area in the 21 days before illness onset. Screenin:46 Abuse screen: Denies threats or abuse. Denies injuries from another. Nutritional ss screening: No deficits noted. Tuberculosis screening: Never had TB. Fall Risk None identified. Assessment: 08:50 General: Appears in no apparent distress. comfortable, Behavior is calm, cooperative, ss Denies fever, feeling ill, fatigue, chills. Pain: Denies pain. Neuro: Level of Consciousness is awake, alert, obeys commands, Oriented to person, place, time, situation. Respiratory: Respiratory effort is even, unlabored. Derm: Skin is intact, is healthy with good turgor, Skin is dry, Skin is pink, warm \T\ dry. normal. Musculoskeletal: Circulation, motion, and sensation intact. Range of motion: intact in all extremities, Swelling absent. 09:59 Reassessment: Patient appears in no apparent distress at this time. Patient and/or ss family updated on plan of care and expected duration. Pain level reassessed. Patient is alert, oriented x 3, equal unlabored respirations, skin warm/dry/pink. Patient denies pain at this time. Vital Signs: 08:54 BP 155 / 71; Pulse 56; Resp 16; Temp 98.0(TE); Pulse Ox 100% on R/A; Weight 86.18 kg; Height 5 ft. 9 in. (175.26 cm); Pain 0/10; 08:54 Body Mass Index 28.06 (86.18 kg, 175.26 cm) ED Course: 08:36 Patient arrived in ED. rg4 08:46 Patient has correct armband on for positive identification. Bed in low position. 08:52 [facility] jrJane 08:52 Roger Snider MD is Attending Physician. jr8 08:52 Katty Ferrell RN is Primary Nurse. 08:54 Triage completed. 08:54 Arm band placed on right wrist. 09:25 No provider procedures requiring assistance completed. Removal of Removed sutures from ss nose and face Suture site is well healed Patient tolerated well. 09:40 Patient did not have IV access during this emergency room visit. Administered Medications: No medications were administered Outcome: 09:28 Discharge ordered by . 8 09:45 Discharged to home ambulatory. 09:45 Condition: good 09:45 Discharge instructions given to patient, Instructed on discharge instructions, follow up and referral plans. wound care, Demonstrated understanding of instructions, follow-up care. 10:00 Patient left the ED. Signatures: Katty Ferrell RN RN Phil Kuhn PA PA 8 Karen Duarte rg4 Corrections: (The following items were deleted from the chart) 08:56 08:52 Presenting complaint: Patient states: here to have sutures removed from nose and ss inner upper lip. Pt denies pain 09:59 09:40 No provider procedures requiring assistance completed. [facility]
== END 2018-09-13 10:00 | disposition home or self-care (01) ==
LOC: ER 08:34
DX: Z48.02 Encounter for removal of sutures (principal)
CPT/HCPCS: 99281

== ENCOUNTER 2018-09-28 10:52 | Emergency (ER) | payer OTHER, BC ==
--- OUTSIDE RECORDS SUMMARY | 2018-09-28 10:54 | XMS REPORT | Continuity of Care Document ---
[...] 5 mL, 4 Refill(s) Hydrochlorothiazide See Active 10/09[facility] 12.5 MG / Lisinopril Instruction 2016 Medical 10 MG Oral Tablet s, TAKE 1 Group TABLET BY MOUTH DAILY., # 90 tab, 3 Refill(s), Pharmacy: [facility] [id number] Allergies, Adverse Reactions, Alerts Substance Category Reaction [...] Number For Provider Date Date Visit Outpatient [id number] SHARAN04/[address] [facility] Outpt Diag [id number] 04/23 [facility] [place] Outpatient [id number] SHARAN05/[address] [facility] [place] Outpatient [id number] SHARAN09/[address] [facility] Phone [phone] 10/09 10/11 Primary Message /2016 [facility] [place] Outpatient [id number] 04/[address] [facility] Outpatient [id number] Sharan04/30 [facility] [place] Procedures Procedure Code Date Perfomer [place] [id number] 04/30/2018 [facility] venous blood by Group venipuncture Appendectomy<sup>1 [id number] 1950 [facility] </sup> [place] Colonoscopy<sup>2< [id number] 2009 [facility] /sup> [facility] EKG<sup>3</sup> [id number] 1999 [facility] [place] Excision of [id number] 1989 [facility] gallbladder<sup>4< [facility] /sup> Manual repair of [id number] [facility] hernia<sup>5, procedure in [place] </sup> 1992 Rotator cuff [id number] 1989 [facility] repair<sup>7</sup> [place] Appendectomy<sup>1 [id number] 1950 Medical </sup> Group Colonoscopy<sup>2< [id number] 2009 Medical /sup> Group EKG<sup>3</sup> [id number] 1999 Medical Group Excision of [id number] 1989 Medical gallbladder<sup>4< Group /sup> Manual repair of [id number] Medical hernia<sup>5, procedure in Group 6</sup> 1992 Rotator cuff [id number] 1989 Medical repair<sup>7</sup> Group
--- NOTE | 2018-09-28 11:26 | ER ---
Nurse's Notes [facility] Name: Michael Laboy Age: 78 yrs Sex: Male : 1940 Arrival Date: 09/28/2018 Time: 10:55 Bed Waiting Private MD: Oly Butler Diagnosis: Zoster [herpes zoster] Presentation: 09/28 11:22 Presenting complaint: Patient states: I have a painful rash on the right side of my abd la1 and I think I have shingles. Transition of care: patient was not received from another setting of care. Onset of symptoms was September 28, 2018. Risk Assessment: Do you want to hurt yourself or someone else? Patient reports no desire to harm self or others. Initial Sepsis Screen: Does the patient meet any 2 criteria? No. Patient's initial sepsis screen is negative. Does the patient have a suspected source of infection? No. Patient's initial sepsis screen is negative. Care prior to arrival: None. 11:22 Method Of Arrival: Ambulatory la1 11:22 Acuity: ELIZABETH 4 la1 Historical: - Allergies: 11:22 PENICILLINS; la1 - PMHx: 11:22 Hypertension; la1 - Immunization history:: Adult Immunizations up to date. - Social history:: Smoking status: Patient/guardian denies using tobacco. - Ebola Screening: : No symptoms or risks identified at this time. Screenin:24 Abuse screen: Denies threats or abuse. Nutritional screening: No deficits noted. la1 Tuberculosis screening: No symptoms or risk factors identified. Fall Risk None identified. Assessment: 11:24 General: Appears in no apparent distress. Behavior is calm, cooperative. Pain: la1 Complains of pain in right upper quadrant. Neuro: Level of Consciousness is awake, alert, obeys commands, Oriented to person, place, time, situation. Cardiovascular: Capillary refill < 3 seconds Patient's skin is warm and dry. Respiratory: Airway is patent Respiratory effort is even, unlabored. GI: No signs and/or symptoms were reported involving the gastrointestinal system. : No signs and/or symptoms were reported regarding the genitourinary system. Derm: Rash noted that is papular, red, raised, on right upper quadrant. Vital Signs: : BP 149 / 78; Pulse 72; Resp 18; Temp 97.5; Pulse Ox 98% on R/A; Weight 87.54 kg; Height la1 5 ft. 9 in. (175.26 cm); 11:22 Body Mass Index 28.50 (87.54 kg, 175.26 cm) la1 ED Course: 10:55 Patient arrived in ED. mr 10:57 Oly Butler MD is Private Physician. mr 11:22 Triage completed. la1 11:22 Arm band placed on left wrist. la1 11:24 Patient has correct armband on for positive identification. la1 11:24 No provider procedures requiring assistance completed. Patient did not have IV access la1 during this emergency room visit. 11:26 Alethea Pichardo FNP-C [facility]. kb 11:26 Thien Luo MD is Attending Physician. kb Administered Medications: No medications were administered Outcome: 11: Discharge ordered by MD. kb 11:26 Discharged to home ambulatory. la1 11:26 Condition: stable 11:26 Discharge instructions given to patient, Instructed on discharge instructions, follow up and referral plans. medication usage, Demonstrated understanding of instructions, follow-up care, medications, Prescriptions given X 2. 11:33 Patient left the ED. la1 Signatures: Alethea Pichardo FNP-C FNP-Shankar Shannon Romero MelvaherlindaRené, RN RN la1
--- NOTE | 2018-09-28 11:26 | EDPHYS ---
Physician Documentation [facility] Name: Michael Laboy Age: 78 yrs Sex: Male : 1940 Arrival Date: 09/28/2018 Time: 10:55 Bed Waiting Private MD: lOy Butler ED Physician Thien Luo HPI: 09/28 11:30 This 78 yrs old Male presents to ER via Ambulatory with complaints of kb shingles. 11:31 The patient's rash thought to be caused by an unknown cause. The rash is located on the kb right upper quadrant. The rash can be described as vesicular. Onset: The symptoms/episode began/occurred 2 day(s) ago. Associated signs and symptoms: Pertinent positives: burning sensation, Pain Pertinent negatives: difficulty breathing, fever, itching, nausea, swelling of lips, swelling of throat, swelling of tongue, vomiting, wheezing. Severity of symptoms: At their worst the symptoms were moderate in the emergency department the symptoms are unchanged. The patient has not experienced similar symptoms in the past. The patient has not recently seen a physician. Pt reports pain to area 2 days ago, woke up with rash this morning. Historical: - Allergies: 11:22 PENICILLINS; la1 - PMHx: 11:22 Hypertension; la1 - Immunization history:: Adult Immunizations up to date. - Social history:: Smoking status: Patient/guardian denies using tobacco. - Ebola Screening: : No symptoms or risks identified at this time. ROS: 11:30 Constitutional: Negative for fever, chills, and weight loss, Cardiovascular: Negative kb for chest pain, palpitations, and edema, Respiratory: Negative for shortness of breath, cough, wheezing, and pleuritic chest pain, Abdomen/GI: Negative for abdominal pain, nausea, vomiting, diarrhea, and constipation, Back: Negative for injury and pain, MS/Extremity: Negative for injury and deformity, Neuro: Negative for headache, weakness, numbness, tingling, and seizure. 11:30 Skin: Positive for rash, of the right upper quadrant. Exam: 11:30 Constitutional: This is a well developed, well nourished patient who is awake, alert, kb and in no acute distress. Head/Face: Normocephalic, atraumatic. Chest/axilla: Normal chest wall appearance and motion. Nontender with no deformity. No lesions are appreciated. Cardiovascular: Regular rate and rhythm with a normal S1 and S2. No gallops, murmurs, or rubs. Normal PMI, no JVD. No pulse deficits. Respiratory: Lungs have equal breath sounds bilaterally, clear to auscultation and percussion. No rales, rhonchi or wheezes noted. No increased work of breathing, no retractions or nasal flaring. Abdomen/GI: Soft, non-tender, with normal bowel sounds. No distension or tympany. No guarding or rebound. No evidence of tenderness throughout. MS/ Extremity: Pulses equal, no cyanosis. Neurovascular intact. Full, normal range of motion. Neuro: Awake and alert, GCS 15, oriented to person, place, time, and situation. Cranial nerves II-XII grossly intact. Motor strength 5/5 in all extremities. Sensory grossly intact. Cerebellar exam normal. Normal gait. 11:30 Skin: consistent with zoster, on the right upper quadrant. Vital Signs: 11:22 BP 149 / 78; Pulse 72; Resp 18; Temp 97.5; Pulse Ox 98% on R/A; Weight 87.54 kg; Height la1 5 ft. 9 in. (175.26 cm); 11:22 Body Mass Index 28.50 (87.54 kg, 175.26 cm) la1 MDM: 11:26 Data reviewed: vital signs, nurses notes. Data interpreted: Pulse oximetry: on room air kb is 98 %. Interpretation: normal. Counseling: I had a detailed discussion with the patient and/or guardian regarding: the historical points, exam findings, and any diagnostic results supporting the discharge/admit diagnosis, the need for outpatient follow up, a family practitioner, to return to the emergency department if symptoms worsen or persist or if there are any questions or concerns that arise at home. 11:26 Patient medically screened. kb Administered Medications: No medications were administered Disposition: 12:25 Co-signature as Attending Physician, Thien Luo MD I agree with the assessment and kdr plan of care. Disposition: 09/28/18 11:26 Discharged to Home. Impression: Zoster [herpes zoster]. - Condition is Stable. - Discharge Instructions: Shingles, Avpl-ol-Hsfb. - Prescriptions for Tylenol- Codeine #3 300-30 mg Oral Tablet - take 1 tablet by ORAL route every 4 hours As needed; 20 tablet. Valtrex 1 g Oral Tablet - take 1 tablet by ORAL route every 8 hours for 7 days; 21 tablet. - Medication Reconciliation Form, Thank You Letter, Antibiotic Education, Prescription Opioid Use form. - Follow up: Emergency Department; When: As needed; Reason: Worsening of condition. Follow up: Private Physician; When: 2 - 3 days; Reason: Recheck today's complaints, Continuance of care, Re-evaluation by your physician. Signatures: Alethea Pichardo FNP-C FNP-Thien Padron MD MD kdr René Monge RN RN la1 Corrections: (The following items were deleted from the chart) 11:33 11:26 09/28/2018 11:26 Discharged to Home. Impression: Zoster [herpes zoster]. la1 Condition is Stable. Forms are Medication Reconciliation Form, Thank You Letter, Antibiotic Education, Prescription Opioid Use. Follow up: Emergency Department; When: As needed; Reason: Worsening of condition. Follow up: Private Physician; When: 2 - 3 days; Reason: Recheck today's complaints, Continuance of care, Re-evaluation by your physician. kb
== END 2018-09-28 11:33 | disposition home or self-care (01) ==
LOC: ER 10:52
DX: B02.9 Zoster without complications (principal)
CPT/HCPCS: 99282

== ENCOUNTER 2022-10-12 09:34 | Emergency (ER) | payer OTHER, BC ==
--- OUTSIDE RECORDS SUMMARY | 2022-10-12 09:37 | XMS REPORT | Continuity of Care Document ---
:1940 Author Organization [facility] t Address [address] [place] [address] Care Team Providers Name Role Phone Oly Butler Attending Clinician Unavailable Mahendra Dietz Attending Clinician Problems Condition Condition Condition Status Onset Resolution Last Treating Co mments Source Name Details Category Date Date Treatment Clinician Date [id number] Skin rash Problem Active Com [facility] [id number] Herpes Problem Active Common zoster [facility] without [facility] complicati [facility] [id number] Dry skin Problem Active Commo n [facility] [id number] Skin Problem Active Common lesions [facility] [id number] Prediabete Problem Active Co mmon s [facility] [id number] Hyperglyce Problem Active Com mon [facility] [id number] Cough Problem Active Common [facility] [id number] Swelling Problem Active Comm on of right [facility] knee joint [facility] [id number] Anemia, Problem Active Commo n unspecifie [facility] d [facility] [id number] Hyperurice Problem Active Com mon [facility] [id number] Abnormal Problem Active Comm on x-ray of [facility] knee [facility] [id number] Abnormal Problem Active Comm on renal [facility] function - [facility] test [facility] [id number] Hypertensi Problem Active Com mon on, [facility] unspecifie - [facility] d [facility] [id number] Bronchitis Problem Active Com [facility] [id number] Stage 3 Problem Active Commo n chronic [facility] kidney - [facility] disease [facility] [id number] Status Problem Active Common post fall [facility] [id number] Acute pain Problem Active Com mon of right [facility] knee - [facility] [id number] 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 emia type [facility] [id number] Mouth Problem Active Common lesion [facility] [id number] Acute Problem Active Common right-side Spirit d low back - [facility] pain [facility] sciatica [facility] Hemorrhoid Hemorrhoi Problem Resolve 2018-05-03 Memoria s ds d 00:46:39 l (disorder) (disorder) He rmann Resolved Problem 05/03/2018 [facility], HERMILO Metcalf Hernia of Hernia of Problem Resolve 2018-05-03 Memoria abdominal abdominal d 00:46:39 l cavity cavity [place] (disorder) (disorder) Resolved Problem 05/03/2018 [facility], HERMILO Metcalf Alopecia Alopecia Problem Resolve 2018-05-03 Memoria (disorder) (disorder) d 00:46:39 l Resolved [place] Problem 05/03/2018 [facility] HERMILO Metcalf Numbness Numbness Problem Resolve 2018-05-03 Memoria (finding) (finding) d 00:46:39 l Resolved [place] Problem 05/03/2018 [facility], HERMILO Metcalf Allergies, Adverse Reactions, Alerts Allergy Allergy Status Severity Reaction(s) Onset Inactive Treating Comm ents Source Name Type Date Date Clinician PCN Adverse Active hives Common Reaction [facility] Bactrim Adverse Active rash--chest/ Co mmon DS Reaction abdomen [facility] penicill penicill Active Memori a ins ins l [place] Social History Social Habit Start Date Stop Date Quantity Comments Source Sex Assigned At Common Sp valeria - [facility] History of Tobacco [facility] - Use [facility] Social History 2016-04-20 2016-04-20 Krishan javier 19:53:20 19:53:20 Medications Ordered Filled Start Stop Current Ordering Indication Dosage Frequency Signature Comments Components Source Medication Medication Date Date Medication? Clinician (SIG) Name Name Allopurinol Allopurinol 1- No 1{table QD Allopurino 100 MG 100 MG 07-27 t} l 100 MG 00:00: 00:00 00 :00 Mupirocin Mupirocin 2019-0 2020- No Oly 1 C ommon 07-07-12 Millender applicatio Spi rit 00:00: 00:00 n to - [facility]I 00 :00 affected [facility] bimatoprost Yes 1 drp, Yoav nikolai 0.1 MG/ML 6-26 BOTH EYES, l Ophthalmic 19:04: Bedtime, # H ermann Solution 00 5 mL, 4 [Lumigan] Refill(s) Hydrochloro 2016-11 Yes See Sully pate thiazide 2-05 Instructio l 12.5 MG / 21:11: ns, TAKE 1 He rmann Lisinopril 00 TABLET BY 10 MG Oral MOUTH Tablet DAILY., # 90 tab, 3 Refill(s), Pharmacy: [facility] [id number] Lisinopril- Lisinopril- Yes Oly 1 tablet Common Hydrochloro Hydrochloro [facility] thiazide thiazide - [facility] Pravastatin Pravastatin Yes Oly 1 tablet Common Sodium Sodium [facility] Lisinopril- Lisinopril- No 1{table QD Lisinopril Hydrochloro Hydrochloro t} -Hydrochlo thiazide thiazide rothiazide 10-12.5 MG 10-12.5 MG 10-12.5 MG Pravastatin Pravastatin No 1{table Pravastati Sodium 40 Sodium 40 t} n Sodium MG MG 40 MG Immunizations Ordered Immunization Filled Immunization Date Status Commen ts Source Name Name FLUZONE HIGH DOSE FLUZONE HIGH DOSE 2019-10-16 Completed Common [facility] - OVER 65 OVER 65 00:00:00 [facility] influenza virus 2017-09-07 Completed [facility] vaccine, inactivated 19:36:00 [facility] Vital Signs Vital Name Observation Time Observation Value Comments Source BMI Calculated 2018-04-30 19:01:00 Sully al Diogo Weight 2018-04-30 19:01:00 [facility] Height 2018-04-30 19:01:00 175.26 cm [facility] Systolic (mm Hg) 2018-04-30 19:01:00 Yoav rial [place] Diastolic (mm Hg) 2018-04-30 19:01:00 [facility] orial [place] Heart Rate 2018-04-30 19:01:00 [facility] Temperature Oral (F) 2018-04-30 19:01:00 98.0 F [facility] [place] Procedures Procedure Date / Time Performed Performing Clinician [facility] e Collection of venous 2018-04-30 20:35:00 Dwain Lind blood by venipuncture Excision of [facility] Diogo gallbladder<sup>4</sup> Manual repair of [facility] Earl n hernia<sup>5, 6</sup> Rotator cuff [facility] repair<sup>7</sup> Appendectomy<sup>1</sup> Memjanis king Diogo Colonoscopy<sup>2</sup> [facility] EKG<sup>3</sup> [facility] [place] Encounters Start End Encounter Admission Attending Care Care Encounter Source Date/Time Date/Time Type Type Clinicians Facility Department ID 2021-11-30 Outpatient STLMLC STLMLC [id number] Common 12:15:12 [id number] [facility] 2021-11-30 Outpatient Millender, STLMLC STLMLC [id number] Common 11:45:12 Oly [id number] [facility] 2021-11-30 Outpatient Millender, STLMLC STLMLC [id number] Common 11:42:21 Oly [id number] [facility] 2020-07-21 2020-07-21 (TEL) STLMLC STLMLC [id number] Co mmon 00:00:00 00:00:00 [facility] 2020-07-16 2020-07-16 [facility] [id number] Common 08:40:00 08:40:00 [facility] [address] [facility] 2020-07-07 2020-07-07 [facility] [id number] Common 08:40:00 08:40:[address] [facility] [address] [facility] 2020-07-07 2020-07-07 (TEL) STLMLC STLMLC [id number] Co mmon 00:00:00 00:00:00 [facility] 2020-06-14 2020-06-14 [facility] [id number] Common 08:30:00 08:30:00 [facility] [address] [facility] 2020-01-15 2020-01-15 [facility] [id number] Common 11:15:00 11:15:[address] [facility] 2019-11-06 2019-11-06 [facility] [id number] Common 13:00:00 13:00:[address] [facility] 2019-10-16 2019-10-16 [facility] [id number] Common 10:40:00 10:40:[address] [facility] 2019-09-24 2019-09-24 [facility] [id number] Common 11:52:00 11:52:[address] [facility] 2019-07-17 2019-07-17 [facility] [id number] Common 13:40:00 13:40:[address] [facility] 2018-12-25 2018-12-25 [facility] [id number] Common 14:15:00 14:15:[address] [facility] 2018-11-27 2018-11-27 [facility] [id number] Common 10:30:00 10:30:[address] [facility] 2018-10-14 2018-10-14 [facility] [id number] Common 11:45:00 11:45:[address] [facility] 2018-04-30 2018-05-01 Outpatient nullFlavo [facility] [id number] Memoria 19:30:00 04:59:59 r Primary 04 l [facility] Aury Duron 2018-04-30 2018-04-30 Outpatient TERAR Dietz [facility] [id number] 14:30:00 23:59:59 Mahendra Elizondo 2018-04-30 2018-04-30 Outpatient ANGELICA TORRES [id number] Memoria 14:30:00 14:30:00 04 fernando Lind 2017-10-09 2017-10-11 Phone nullFlavo [facility] [id number] Memoria 20:49:00 05:59:59 Message r Primary 02 l [facility] Aury Duron 2017-10-09 2017-10-10 Outpatient MHMG [facility] [id number] 14:49:00 23:59:59 02 2017-09-07 2017-09-07 Outpatient MHIE MHIE [id number] Memoria 10:00:00 10:00:00 03 fernando Lind 2017-05-03 2017-05-03 Outpatient MHIE MHIE [id number] Memoria 13:45:00 13:45:00 02 fernando Lind 2017-04-23 2017-04-24 Outpt Diag nullFlavo [facility] [id number] Memoria 19:53:00 04:59:00 Services r Outpatient 00 l [facility] Earl antunez [facility] Duron 2017-04-23 2017-04-23 Outpatient Mirela, 35 [facility] [id number] 14:53:00 23:59:00 Alex 00 2017-04-23 2017-04-23 Outpatient MHIE MHIE [id number] Memoria 14:30:00 14:30:00 01 fernando Lind Results Test Description Test Time Test Comments Results Result Comments Source Uric Acid, Serum Test Item Value Reference Range Interpretation Comme nts Uric Acid (test code = 3084-1) 7.2
[2022-10-12] MEDS ORDERED: DERMABOND SKIN ADHESIVE TOP ONE ×2 (10:22→10:49)
[2022-10-12] MEDS ORDERED: LIDOCAINE 1% MPF 5 ML VIAL ONE (10:22)
[2022-10-12] MEDS ORDERED: TDAP (DIPHTH,PERTUSS(ACELL),TET VAC) 0.5 ML VIAL IMVAC ONE (10:23)
--- NOTE | 2022-10-12 10:54 | RAD REPORT ---
EXAM DESCRIPTION: RAD - Hand Left 3 View - 10/12/2022 10:36 am CLINICAL HISTORY: PAINfollowing fall COMPARISON: None. FINDINGS: No fracture, dislocation or periosteal reaction noted. IP joint degenerative changes are p resent moderate in degree. MCP joint space narrowing is seen at the third joint. No pathologic bone p rocess. Radiocarpal joint space is narrowed. Moderate degenerative change present at the scaphoid- tr apezium articulation. IMPRESSION: Prominent hand degenerative changes are present but no acute finding identified.
--- NOTE | 2022-10-12 10:56 | RAD REPORT ---
EXAM DESCRIPTION: CT - Facial Bones W/ Mpr - 10/12/2022 10:17 am CLINICAL HISTORY: Fall with trauma and lacerations to the left side of the face and forehead COMPARISON: Facial bone CT 09/06/2018 TECHNIQUE: Axial 2 millimeter thick images of the facial bones were obtained with sagittal and coron al reconstruction imaging. All CT scans are performed using dose optimization technique as appropriate and may include automated exposure control or mA/KV adjustment according to patient size. FINDINGS: No mandible fracture identified. Condyles are normally positioned. Mastoid air cells are c lear. No skullbase fracture identified. [place] artifact is present from dental work. Facial bone fract ure is not identified. No acute paranasal sinus finding. Globes and orbital contents appear intact. No foreign body in the soft tissues. No significant soft tissue hematoma or edema findings. IMPRESSION: No facial bone fractures identified.
--- NOTE | 2022-10-12 10:59 | RAD REPORT ---
EXAM DESCRIPTION: CT - CTHCSPWOC - 10/12/2022 10:17 am CLINICAL HISTORY: Fall injuryleft-sided head and face trauma, neck pain COMPARISON: Head C Spine Mpr Wo Con dated 09/06/2018 TECHNIQUE: Axial 5 mm thick images of the head were obtained. Axial 2 mm thick images of the cervic al spine were obtained with sagittal and coronal reconstruction images generated and reviewed. All CT scans are performed using dose optimization technique as appropriate and may include automated exposure control or mA/KV adjustment according to patient size. FINDINGS: No intracranial hemorrhage, mass, edema or acute intracranial finding. No suspicion for ac [place] infarction. No extra-axial fluid collections. Mastoid air cells are clear. Facial bones, orbits a nd sinuses are separately detailed. Patient has mild to moderate atrophy for age with ventricles in p roportion. Chronic ischemic changes minimal. Arterial tree calcifications are present. Cervical bodies are normal in height. No fracture or acute cervical vertebral finding. There is a sli ght degenerative retrolisthesis of C5 on C6 with C5-6 and C6-7 disc space narrowing and endplate spur ring. Facet joint degenerative changes are present. No pathologic bone process. Degenerative changes are present at the dens anterior arch C1 level. Central canal detail is inherently limited. No paraspinal mass or hematoma. IMPRESSION: Negative CT head examination for acute or significant finding. Negative CT cervical spine examination for acute or significant finding. Facial bones, orbits and sinuses are separately detailed.
--- NOTE | 2022-10-12 11:00 | RAD REPORT ---
EXAM DESCRIPTION: RAD - Tib Fib Left - 10/12/2022 10:36 am CLINICAL HISTORY: Fall, leg pain COMPARISON: None. FINDINGS: No fracture is identified. There is no dislocation or periosteal reaction noted. Degenerat willian meniscal changes are present at the knee joint with joint space narrowing. Ankle joint degenerati ve changes are also present. No foreign body or other soft tissue abnormality. IMPRESSION: Negative left tibia & fibula examination for fracture or acute finding.
--- NOTE | 2022-10-12 11:42 | ER ---
Nurse's Notes [facility] Name: Michael Laboy Age: 82 yrs Sex: Male : 1940 Arrival Date: 10/12/2022 Time: 09:35 Bed 16 Private MD: Diagnosis: Contusion of left hand;Contusion of left lower leg;Fall (on) (from) other stairs and steps;Laceration without foreign body of other part of head;Abrasion of unspecified part of head;Abrasion of left forearm-skin tear;Abrasion of left elbow-skin tear Presentation: 10/12 10:02 Chief complaint: Patient states: he fell this morning going down the stairs. patient ap3 states the stairs are wooden and they were wet and very slippery this morning. patient states he hit his head, left parm, left hand and both knees. He reports that he was unable to catch himself during the fall, and denies being on blood thinners. patient also denies LOC. Coronavirus screen: At this time, the client does not indicate any symptoms associated with coronavirus-19. Ebola Screen: No symptoms or risks identified at this time. Initial Sepsis Screen: Does the patient meet any 2 criteria? No. Patient's initial sepsis screen is negative. Does the patient have a suspected source of infection? No. Patient's initial sepsis screen is negative. Risk Assessment: Do you want to hurt yourself or someone else? Patient reports no desire to harm self or others. Onset of symptoms was October 12, 2022 at 09:30. 10:02 Method Of Arrival: Ambulatory ap3 10:02 Acuity: ELIZABETH 3 ap3 12:02 Care prior to arrival: Bleeding of injury controlled. Injury dressed. Mechanism of ko1 Injury: Fall down steps. Trauma event details: Injury occurred in the [facility], Injury occurred: at home. Injury occurred: October 12, 2022 Injury occurred at: 09:30. Triage Assessment: 10:04 General: Appears uncomfortable, Behavior is calm, cooperative. Pain: Complains of pain ap3 in face, left hand, left arm, right leg and left leg. Neuro: Level of Consciousness is awake, alert, obeys commands, Oriented to person, place, time, situation. Respiratory: Airway is patent Respiratory effort is even, unlabored. Derm: Wound noted face and left arm. Historical: - Allergies: 10:03 PENICILLINS; ap3 - PMHx: 10:03 Hypertension; Hypercholesterolemia; ap3 - Social history:: Smoking status: Patient denies any tobacco usage or history of. - Immunization history: Last tetanus immunization: unknown. Screenin:04 Abuse screen: Denies threats or abuse. Nutritional screening: No deficits noted. ap3 Tuberculosis screening: No symptoms or risk factors identified. 10:24 Fall Risk Fall in past 12 months (25 points). ko1 Primary Survey: 10:15 NO uncontrolled hemorrhage observed. A: The client is awake and alert. The airway is ko1 patent. The client is alert. Breathing/Chest: Spontaneous respiratory effort, equal unlabored respirations, breath sounds clear bilaterally, regular pattern, symmetrical chest rise and fall. Breath sounds: clear. Circulation: No external hemorrhage present. Regular and strong central pulse, skin warm/dry/normal color. Disability Pupils are equal, round, reactive to light and accommodation. Client is alert. Exposure/Environment: 10:15 Reassessment Breathing: Spontaneous respiratory effort, equal unlabored respirations, ko1 breath sounds clear bilaterally, regular pattern with symmetrical chest rise and fall. Circulation: No external hemorrhage noted. Regular and strong central pulse, skin warm/dry/normal color. Disability: Pupils Pupils are equal, round, reactive to light and accomodation. Alert. 12:02 Reassessment Alertness and Airway: Awake and alert. The airway is patent. ko1 Assessment: 10:15 General: Appears in no apparent distress. uncomfortable, Behavior is calm, cooperative, ko1 appropriate for age. Pain: Complains of pain in left cheek and forehead and lateral canthus of left eye and left eye and left leg and right leg and left arm and left hand and face. Neuro: No deficits noted. Cardiovascular: No deficits noted. Respiratory: No deficits noted. GI: No deficits noted. : No deficits noted. EENT: No deficits noted. Derm: No deficits noted. Musculoskeletal: laceration to left eye, large skin tear to left forearm and elbow. Injury Description: Laceration sustained to lateral canthus of left eye skin tear left arm. Vital Signs: 10:02 BP 150 / 71; Pulse 51; Resp 18; Temp 97.7(O); Pulse Ox 99% ; Weight 86.18 kg; Height 5 ap3 ft. 9 in. (175.26 cm); 10:15 BP 155 / 75; Pulse 58; Pulse Ox 100% on R/A; ko1 11:42 BP 148 / 78; Pulse 56; Pulse Ox 99% on R/A; ko1 10:02 Body Mass Index 28.06 (86.18 kg, 175.26 cm) ap3 [place] Coma Score: 10:15 Eye Response: spontaneous(4). Verbal Response: oriented(5). Motor Response: obeys ko1 commands(6). Total: 15. Trauma Score (Adult): 10:15 Eye Response: spontaneous(1); Verbal Response: oriented(1); Motor Response: obeys ko1 commands(2); Systolic BP: > 89 mm Hg(4); Respiratory Rate: 10 to 29 per min(4); [place] Score: 15; Trauma Score: 12 ED Course: 09:35 Patient arrived in ED. as 09:37 Julio Cesar Astorga NP is PHCP. pm1 09:37 Aleksandar Sandoval MD is Attending Physician. pm1 10:01 Jodi Huang RN is Primary Nurse. ap3 10:03 Triage completed. ap3 10:05 Arm band placed on right wrist. ap3 10:15 Patient maintains SpO2 saturation greater than 95% on room air. ko1 10:19 CT Head C Spine In Process Unspecified. EDMS 10:19 CT Facial Bones W/O Con In Process Unspecified. EDMS 10:24 Patient has correct armband on for positive identification. Bed in low position. Call ko1 light in reach. Side rails up X 1. Pulse ox on. NIBP on. 10:30 Thermoregulation: warm blanket given to patient. ko1 10:38 Hand Left 3 View XRAY In Process Unspecified. EDMS 10:38 Tib Fib Left XRAY In Process Unspecified. EDMS 11:42 Patient did not have IV access during this emergency room visit. ko1 11:42 Assist provider with laceration repair on lateral canthus of left eye using sutures. ko1 Set up tray. Performed by Julio Cesar Astorga NP Patient tolerated well. 11:42 Assist provider with laceration repair on left arm using Dermabond. Performed by ko1 Julio Cesar Marinas [employer] Dressed with 4X4s, Kerlix, Patient tolerated well. 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 Exp: ko1 05/19/2023. Lot #: [id number]. } Route: IM; Site: left deltoid; 10:48 Drug: Lidocaine (1 %) 5 ml Volume: 5 ml; Route: Infiltration; ko1 Medication: 11:42 Vaccine Information Statement (VIS) provided today. Questions and/or concerns ko1 addressed. VIS edition date: 2021. Intake: 10:15 PO: 0ml; Total: 0ml. ko1 Output: 10:15 Urine: 0ml; Total: 0ml. ko1 Outcome: 10:15 Patient's length of stay was not longer than 2 hours. ko1 11:42 Discharge ordered by . pm1 11:42 Discharged to home ambulatory, with family. ko1 11:42 Condition: improved 11:42 Discharge instructions given to patient, family, Instructed on discharge instructions, follow up and referral plans. medication usage, wound care, Demonstrated understanding of instructions, follow-up care, medications, wound care, Prescriptions given X 1. 12:04 Patient left the ED. ko1 Signatures: Dispatcher [employer] EDMS Zaira Hand Patrick, NP [employer] pm1 Jodi Huang, RN RN mi3 Annabelle Willis RN RN ko1
--- NOTE | 2022-10-12 11:43 | EDPHYS ---
Physician Documentation [facility] Name: Michael Laboy Age: 82 yrs Sex: Male : 1940 Arrival Date: 10/12/2022 Time: 09:35 Bed 16 Private MD: ED Physician Aleksandar Sandoval HPI: 10/12 10:16 This 82 yrs old Male presents to ER via Ambulatory with complaints of Fall Injury, Skin pm1 Tear(s). 10:16 Details of fall: The patient fell from an upright position, while standing. Onset: The pm1 symptoms/episode began/occurred 30 minute(s) ago. Associated injuries: The patient sustained injury to the head, abrasion, laceration, 1 cm(s), of the lateral canthus of left eye, Swelling left cheek, skin tear left elbow and left forearm, Left hand contusion, left toribio contusion. Severity of symptoms: in the emergency department the symptoms are unchanged. The patient has not experienced similar symptoms in the past. The patient has not recently seen a physician. Patient was walking down the stairs, approximately 4 steps from the bottom patient slipped on the green cyano bacteria on the step and slipped. Patient landed on the left side of his body, sustaining contusion, laceration, abrasion to left side of face, skin tear to left elbow and left forearm, contusion to left palm of hand and left toribio. Patient without any LOC, headache, neck pain, nausea vomiting. Patient denies pain to any other parts of his body negative for hip pain and back pain. Patient able to stand up and ambulate after the fall. Historical: - Allergies: 10:03 PENICILLINS; ap3 - PMHx: 10:03 Hypertension; Hypercholesterolemia; ap3 - Social history:: Smoking status: Patient denies any tobacco usage or history of. - Immunization history: Last tetanus immunization: unknown. ROS: 10:16 Constitutional: Negative for fever, chills, and weight loss, Neck: Negative for injury, pm1 pain, and swelling, Cardiovascular: Negative for chest pain, palpitations, and edema, Respiratory: Negative for shortness of breath, cough, wheezing, and pleuritic chest pain. 10:16 Neuro: Negative for headache, weakness, numbness, tingling, and seizure. 10:16 MS/extremity: Positive for contusion to left palm of hand and left toribio. Skin tears present to left forearm and left elbow, Negative for decreased range of motion, deformity. 10:16 Skin: Positive for of the lateral canthus of left eye laceration, abrasion to left side of forehead. 10:16 All other systems are negative. Exam: 10:16 Constitutional: This is a well developed, well nourished patient who is awake, alert, pm1 and in no acute distress. 10:16 Back: No spinal tenderness. No costovertebral tenderness. Full range of motion. 10:16 Head/face: Noted is no obvious of injury or deformity except abrasion(s), that are mild, of the forehead, a laceration(s), 1 cm(s), of the lateral canthus of left eye, of the superficial and irregular shaped. 10:16 Eyes: Periorbital structures: no acute changes, Pupils: no acute changes, Extraocular movements: intact throughout, Conjunctiva: no acute changes, no injection. 10:16 ENT: Exam is negative for acute changes, External ear(s): no acute changes, Ear canal(s): no acute changes, TM's: no acute changes, Mouth: no acute changes, Lips: normal, Oral mucosa: normal, pink and intact, moist, Voice: no acute changes. 10:16 Neck: Exam negative for acute changes, C-spine: vertebral tenderness, is not appreciated, ROM/movement: no acute changes. 10:16 Chest/axilla: Exam negative for acute changes, Inspection: no acute changes, Palpation: no acute changes, tenderness, is not appreciated. 10:16 Cardiovascular: Exam negative for acute changes, Rate: normal, Rhythm: regular, Pulses: no pulse deficits are appreciated. 10:16 Respiratory: Exam negative for acute changes, respiratory distress, shortness of breath. 10:16 Abdomen/GI: Exam negative for acute changes, Inspection: abdomen appears normal, Palpation: abdomen is soft and non-tender, in all quadrants. 10:16 Skin: Appearance: normal except for affected area, injury, contusion(s), that are superficial, of the left cheek, laceration(s), the wound is approximately 1 cm(s), of the lateral canthus of left eye, that can be described as clean, no foreign body, irregular, without bleeding, skin tear to left elbow and left forearm. 10:16 Neuro: Exam negative for acute changes, Orientation: is normal, Mentation: is normal, Motor: is normal, moves all fours. Vital Signs: 10:02 BP 150 / 71; Pulse 51; Resp 18; Temp 97.7(O); Pulse Ox 99% ; Weight 86.18 kg; Height 5 ap3 ft. 9 in. (175.26 cm); 10:15 BP 155 / 75; Pulse 58; Pulse Ox 100% on R/A; ko1 11:42 BP 148 / 78; Pulse 56; Pulse Ox 99% on R/A; ko1 10:02 Body Mass Index 28.06 (86.18 kg, 175.26 cm) ap3 Juan Coma Score: 10:15 Eye Response: spontaneous(4). Verbal Response: oriented(5). Motor Response: obeys ko1 commands(6). Total: 15. Trauma Score (Adult): 10:15 Eye Response: spontaneous(1); Verbal Response: oriented(1); Motor Response: obeys ko1 commands(2); Systolic BP: > 89 mm Hg(4); Respiratory Rate: 10 to 29 per min(4); Houlton Score: 15; Trauma Score: 12 Laceration: 11:37 Wound Repair of 2cm ( 0.8in ) subcutaneous laceration to lateral canthus of left eye. pm1 Irregularly shaped.. Distal neuro/vascular/tendon intact. Anesthesia: Local anesthetic administered with 1 mls of 1% lidocaine. Wound prep: Extensive cleansing with hibiclenz by me, Wound irrigation with saline by me, Wound explored extensively, Copious irrigation. Skin closed with 3 6-0 Prolene using simple sutures and sterile technique. Dressed with Neosporin. Patient tolerated well. 11:37 Wound Repair of 15cm ( 5.9in ) subcutaneous laceration to skin tear to left elbow and pm1 left forearm. Irregularly shaped.. Distal neuro/vascular/tendon intact. Wound prep: Extensive cleansing with hibiclenz by me, Wound irrigation with saline by me, Wound explored extensively, Copious irrigation. Skin closed with 1-0 Adhesive skin closure using Dermabond. Dressed with 4x4's. Patient tolerated well. MDM: 09:38 Patient medically screened. pm1 10:29 Data reviewed: vital signs. Data interpreted: Pulse oximetry: on room air is 99 %. pm1 Interpretation: normal. 11:39 Counseling: I had a detailed discussion with the patient and/or guardian regarding: the pm1 historical points, exam findings, and any diagnostic results supporting the discharge/admit diagnosis, radiology results, the need for outpatient follow up, to return to the emergency department if symptoms worsen or persist or if there are any questions or concerns that arise at home. 10/12 10:08 Order name: CT Head C Spine; Complete Time: 11:09 pm1 10/12 10:08 Order name: CT Facial Bones W/O Con; Complete Time: 11:09 pm1 10/12 10:08 Order name: Hand Left 3 View XRAY; Complete Time: 11: pm1 10/12 10:08 Order name: Tib Fib Left XRAY; Complete Time: 11:09 pm1 10/12 10:08 Order name: Dermabond; Complete Time: 10:23 pm1 10/12 10:09 Order name: Dressing - Wound; Complete Time: 10:18 pm1 10/12 10:09 Order name: Gloves, Sterile; Complete Time: 10:18 pm1 10/12 10:09 Order name: Prolene, Sutures; Complete Time: 10:18 pm1 10/12 10:09 Order name: Setup Suture Tray; Complete Time: 10:18 pm1 Administered Medications: 10:46 Drug: Tetanus-Diphtheria Toxoid Adult 0.5 ml {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 Exp: ko1 05/19/2023. Lot #: [id number]. } Route: IM; Site: left deltoid; 10:48 Drug: Lidocaine (1 %) 5 ml Volume: 5 ml; Route: Infiltration; ko1 Disposition: 13:33 Co-signature as Attending Physician, Aleksandar Sandoval MD. rn Disposition Summary: 10/12/22 11:42 Discharge Ordered Location: Home pm1 Problem: new pm1 Symptoms: have improved pm1 Condition: Stable pm1 Diagnosis - Contusion of left hand pm1 - Contusion of left lower leg pm1 - Fall (on) (from) other stairs and steps pm1 - Laceration without foreign body of other part of head pm1 - Abrasion of unspecified part of head pm1 - Abrasion of left forearm - skin tear pm1 - Abrasion of left elbow - skin tear pm1 Followup: pm1 - With: Emergency Department - When: As needed - Reason: Worsening of condition Followup: pm1 - With: Private Physician - When: 7 - 10 days - Reason: Recheck today's complaints, Continuance of care, Staple/Suture removal, Re-evaluation by your physician Discharge Instructions: - Discharge Summary Sheet pm1 - Contusion pm1 - Tissue Adhesive Wound Care pm1 - Facial Laceration pm1 - Hand Contusion pm1 - Fall Prevention in the Home, Adult pm1 Forms: - Medication Reconciliation Form pm1 - Thank You Letter pm1 - Antibiotic Education pm1 - Prescription Opioid Use pm1 Prescriptions: - Bactrim DS 800-160 mg Oral Tablet - take 1 tablet by ORAL route every 12 hours for 7 days; 14 tablet; Refills: 0, pm1 Product Selection Permitted Signatures: Dispatcher [employer] Aleksandar Dotson MD MD rn Marinas, Patrick, NP [employer] pm1 Jodi Huang RN RN ap3 Annabelle Willis RN RN ko1
[2022-10-12 12:43] VITALS: TEMP 97.7
[2022-10-12 12:45] VITALS: BP 148/78; O2SAT 99
== END 2022-10-12 12:04 | disposition home or self-care (01) ==
LOC: ER 09:34
PROC: 0JQ10ZZ Repair Face Subcutaneous Tissue and Fascia, Open Approach (ICD-10-PCS; principal; 2022-10-12)
PROC: 0JQH0ZZ Repair Left Lower Arm Subcutaneous Tissue and Fascia, Open Approach (ICD-10-PCS; 2022-10-12)
DX: S01.81XA Laceration without foreign body of other part of head, initial encounter (principal); S50.812A Abrasion of left forearm, initial encounter; S50.312A Abrasion of left elbow, initial encounter; S60.222A Contusion of left hand, initial encounter; S80.12XA Contusion of left lower leg, initial encounter; W10.9XXA Fall (on) (from) unspecified stairs and steps, initial encounter; I10 Essential (primary) hypertension; Z88.0 Allergy status to penicillin; Z23 Encounter for immunization
CPT/HCPCS: 70450; 72125; 70486; 76377; 73130; 73590; 90471; 99284; 12011; 12005; J2001

== ENCOUNTER 2023-01-23 19:08 | Emergency (ER) | payer OTHER, BC ==
--- OUTSIDE RECORDS SUMMARY | 2023-01-23 19:12 | XMS REPORT | Continuity of Care Document ---
:1940 Author Organization [facility] t Address [address] [place] [address] Care Team Providers Name Role Phone Oly Butler Attending Clinician Unavailable Mahendra Dietz Attending Clinician Problems Condition Condition Condition Status Onset Resolution Last Treating Co mments Source Name Details Category Date Date Treatment Clinician Date Hernia of Hernia of Problem Resolve 2018-05-03 Memoria abdominal abdominal d 00:46:39 l cavity cavity Diogo (disorder) (disorder) Resolved [facility]03[facility] Alopecia Alopecia Problem Resolve 2018-05-03 Memoria (disorder) (disorder) d 00:46:39 l Resolved [place] Problem 05/03/2018 [facility] HERMILO Metcalf Numbness Numbness Problem Resolve 2018-05-03 Memoria (finding) (finding) d 00:46:39 l Resolved Diogo Problem 05/03/2018 [facility] HERMILO Metcalf Hemorrhoid Hemorrhoi Problem Resolve 2018-05-03 Memoria s ds d 00:46:39 l (disorder) (disorder) He rmann Resolved Problem 05/03/2018 [facility] HERMILO Metcalf [id number] Skin rash Problem Active Com mon [facility] [id number] Herpes Problem Active Common zoster Spirit without - [facility] complicati [facility] [id number] Dry skin Problem Active Commo n [facility] [id number] Skin Problem Active Common lesions [facility] [id number] Prediabete Problem Active Co mmon s Spirit - [facility] [id number] Hyperglyce Problem Active Com mon bayron [facility] [id number] Cough Problem Active Common Spirit - [facility] [id number] Swelling Problem Active Comm on of right [facility] knee joint [facility] [id number] Anemia, Problem Active Commo n unspecifie [facility] d [facility] [id number] Hyperurice Problem Active Com mon bayron [facility] [id number] Abnormal Problem Active Comm on x-ray of [facility] knee [facility] [id number] Abnormal Problem Active Comm on renal [facility] function - [facility] test [facility] [id number] Hypertensi Problem Active Com mon on, Spirit unspecifie - [facility] d type [facility] [id number] Bronchitis Problem Active Com mon [facility] [id number] Stage 3 Problem Active Commo n chronic [facility] kidney [facility] disease [facility] [id number] Status Problem Active Common post fall [facility] [id number] Acute pain Problem Active Com mon of right [facility] knee 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 [id number] Hyperlipid Problem Active Com mon emia, Spirit unspecifie - [facility] d hyperlipid [facility] emia [facility] [id number] Mouth Problem Active Common lesion [facility] [id number] Acute Problem Active Common right-side [facility] d low back - [facility] pain [facility] sciatica [facility] Allergies, Adverse Reactions, Alerts Allergy Allergy Status Severity Reaction(s) Onset Inactive Treating Comm ents Source Name Type Date Date Clinician penicill penicill Active Memori a ins ins l Diogo PCN Adverse Active hives Common Reaction [facility] Bactrim Adverse Active rash--chest/ Co mmon DS Reaction abdomen [facility] Social History Social Habit Start Date Stop Date Quantity Comments Source Sex Assigned At Common Sp valeria - [facility] History of Tobacco Common [facility] - Use [facility] Social History 2016-04-20 2016-04-20 Krishan javier 19:53:20 19:53:20 Medications Ordered Filled Start Stop Current Ordering Indication Dosage Frequency Signature Comments Components Source Medication Medication Date Date Medication? Clinician (SIG) Name Name Allopurinol Allopurinol 2020- No 1{table QD Allopurino 100 MG 100 MG 07-27 t} l 100 MG 00:00: 00:00 00 :00 Mupirocin Mupirocin 0 2020- No Oly 1 C ommon 07-07 Millender applicatio Spi rit 00:00: 00:00 n to - CHI 00 :00 affected [facility] bimatoprost Yes 1 drp, Yoav nikolai 0.1 MG/ML 6-26 BOTH EYES, l Ophthalmic 19:04: Bedtime, # H ermann Solution 00 5 mL, 4 [Lumigan] Refill(s) bimatoprost Yes 1 drp, Yoav nikolai 0.1 MG/ML 6-26 BOTH EYES, l Ophthalmic 19:04: Bedtime, # H ermann Solution 00 5 mL, 4 [Lumigan] Refill(s) Hydrochloro 2016-11 Yes See Memori a thiazide 2-05 Instructio l 12.5 MG / 21:11: ns, TAKE 1 He rmann Lisinopril 00 TABLET BY 10 MG Oral MOUTH Tablet DAILY., # 90 tab, 3 Refill(s), Pharmacy: [facility] Hydrochloro 2016-11 Yes See Memori a thiazide 2-05 Instructio l 12.5 MG / 21:11: ns, TAKE 1 He rmann Lisinopril 00 TABLET BY 10 MG Oral MOUTH Tablet DAILY., # 90 tab, 3 Refill(s), Pharmacy: [facility] Lisinopril- Lisinopril- Yes Oly 1 tablet Common Hydrochloro Hydrochloro Millender Spirit thiazide thiazide - [facility] Pravastatin Pravastatin Yes Oly 1 tablet Common Sodium Sodium Millender Spirit - [facility] Lisinopril- Lisinopril- No 1{table QD Lisinopril Hydrochloro Hydrochloro t} -Hydrochlo thiazide thiazide rothiazide 10-12.5 MG 10-12.5 MG 10-12.5 MG Pravastatin Pravastatin No 1{table Pravastati Sodium 40 Sodium 40 t} n Sodium MG MG 40 MG Immunizations Ordered Immunization Filled Immunization Date Status Commen ts Source Name Name FLUZONE HIGH DOSE FLUZONE HIGH DOSE 2019-10-16 Completed Common [facility] - OVER 65 OVER 65 00:00:00 [facility] influenza virus 2017-09-07 Completed [facility] vaccine, inactivated 19:36:00 Herm olu influenza virus 2017-09-07 Completed [facility] vaccine, inactivated 19:36:00 Herm olu Vital Signs Vital Name Observation Time Observation Value Comments Source BMI Calculated 2018-04-30 19:01:00 Sully al Diogo Weight 2018-04-30 19:01:00 [facility] [place] Height 2018-04-30 19:01:00 175.26 cm [facility] Systolic (mm Hg) 2018-04-30 19:01:00 Yoav rial [place] Diastolic (mm Hg) 2018-04-30 19:01:00 Mem orial Diogo Heart Rate 2018-04-30 19:01:00 [facility] [place] Temperature Oral (F) 2018-04-30 19:01:00 98.0 F [facility] Diogo Procedures Procedure Date / Time Performed Performing Clinician [facility] e Collection of venous 2018-04-30 20:35:00 Aniketjanis l [place] blood by venipuncture Appendectomy<sup>1</sup> Memoria l Diogo Colonoscopy<sup>2</sup> [facility] EKG<sup>3</sup> [facility] Di[facility] Excision of [facility] [place] gallbladder<sup>4</sup> Manual repair of [facility] [place] hernia<sup>5, 6</sup> Rotator cuff [facility] [place] repair<sup>7</sup> Encounters Start End Encounter Admission Attending Care Care Encounter Source Date/Time Date/Time Type Type Clinicians Facility Department ID 2021-11-30 Outpatient [facility] [id number] Common 12:15:12 [id number] [facility] 2021-11-30 Outpatient Millender, [facility] [id number] Common 11:45:12 Oly [id number] [facility] 2021-11-30 Outpatient Millender, [facility] [id number] Common 11:42:21 Oly [id number] [facility] 2020-07-21 2020-07-21 (TEL) [facility] [id number] Co mmon 00:00:00 00:00:00 [facility] 2020-07-16 2020-07-16 [facility] [id number] Common 08:40:00 08:40:[address] [facility] 2020-07-07 2020-07-07 [facility] [id number] Common 08:40:00 08:40:[address] [facility] 2020-07-07 2020-07-07 (TEL) [facility] [id number] Co mmon 00:00:00 00:00:00 [facility] 2020-06-14 2020-06-14 [facility] [id number] Common 08:30:00 08:30:[address] [facility] [address] [facility] 2020-01-15 2020-01-15 [facility] [id number] Common 11:15:00 11:15:[address] [facility] [address] [facility] 2019-11-06 2019-11-06 Out[facility] [id number] Common 13:00:00 13:00:[address] [facility] 2019-10-16 2019-10-16 [facility] [id number] Common 10:40:00 10:40:[address] [facility] 2019-09-24 2019-09-24 [facility] [id number] Common 11:52:00 11:52:[address] [facility] 2019-07-17 2019-07-17 [facility] [id number] Common 13:40:00 13:40:[address] [facility] 2018-12-25 2018-12-25 Out[facility] [id number] Common 14:15:00 14:15:[address] [facility] 2018-11-27 2018-11-27 Out[facility] [id number] Common 10:30:00 10:30:[address] [facility] 2018-10-14 2018-10-14 [facility] [id number] Common 11:45:00 11:45:[address] [facility] [address] [facility] [address] [facility] 2018-04-30 2018-05-01 Outpatient nullFlavo [facility] [id number] Memoria 19:30:00 04:59:59 r Primary 04 l Care Twyla Jeffers Oliverio 2018-04-30 2018-05-01 Outpatient nullFlavo [facility] [id number] Memoria 19:30:00 04:59:59 r Primary 04 l Care Twyla Jeffers Oliverio 2018-04-30 2018-04-30 Outpatient Mirela, [facility] [id number] 14:30:00 23:59:59 Alex 04 2018-04-30 2018-04-30 Outpatient [facility] [id number] Memoria 14:30:00 14:30:00 04 fernando Lind 2017-10-09 2017-10-11 Phone nullFlavo [facility] [id number] Memoria 20:49:00 05:59:59 Message r Primary 02 l Care Twyla Jeffers Oliverio 2017-10-09 2017-10-11 Phone nullFlavo [facility] [id number] Memoria 20:49:00 05:59:59 Message r Primary 02 l Care Twyla Jeffers Oliverio 2017-10-09 2017-10-10 Outpatient [facility] [id number] 14:49:00 23:59:59 02 2017-09-07 2017-09-07 Outpatient [facility]IE [facility] [id number] Memoria 10:00:00 10:00:00 03 fernando Lind 2017-09-07 2017-09-07 Outpatient [facility]IE [facility] [id number] Memoria 10:00:00 10:00:00 03 fernando Lind 2017-05-03 2017-05-03 Outpatient [facility]IE [facility] [id number] Memoria 13:45:00 13:45:00 02 fernando Lind 2017-05-03 2017-05-03 Outpatient [facility] [id number] Memoria 13:45:00 13:45:00 02 fernando Lind 2017-04-23 2017-04-24 Outpt Diag nullFlavo [facility] [id number] Memoria 19:53:00 04:59:00 Services r Outpatient 00 l Imaging - [place] [facility] 2017-04-23 2017-04-24 Outpt Diag nullFlavo [facility] [id number] Memoria 19:53:00 04:59:00 Services r Outpatient 00 l Imaging - [place] [facility] 2017-04-23 2017-04-23 Outpatient Granjamie, [address] [id number] 14:53:00 23:59:00 Alex 00 2017-04-23 2017-04-23 Outpatient IE IE [id number] Memoria 14:30:00 14:30:00 01 fernando Lind 2017-04-23 2017-04-23 Outpatient MHIE IE [id number] Memoria 14:30:00 14:30:00 fernando Lind Results Test Description Test Time Test Comments Results Result Comments Source Uric Acid, Serum Test Item Value Reference Range Interpretation Comme nts Uric Acid (test code = 3084-1) 7.2
[2023-01-23] MEDS ORDERED: FAMOTIDINE 20 MG/2 ML VIAL IV ONE ×2 (21:01→22:31)
[2023-01-23] MEDS ORDERED: ONDANSETRON 4 MG/2 ML VIAL ONE (21:01)
[2023-01-23] MEDS ORDERED: NA CHLORIDE 0.9% 1,000 ML ONE (21:01)
[2023-01-23] MEDS ORDERED: dexAMETHasone 10 MG/ML VIAL ONE ×2 (21:01→22:07)
[2023-01-23 21:17] LABS: Absolute Lymphocytes (CBC) 0.2 K/uL (0.7-4.9); Hematocrit 41.8 % (39.6-49.0); Lymphocytes % 2.6 % (15.3-44.8); MCV 94.9 fL (80-100); MPV 8.1 fL (7.6-11.3)
[2023-01-23 21:47] LABS: Potassium 4.7 mEq/L (3.5-5.1)
[2023-01-23 21:48] LABS: Albumin 4.1 g/dL (3.4-5.0); Bilirubin Total 0.4 mg/dL (0.2-1.0); Protein, Total 8.2 g/dL (6.4-8.2)
[2023-01-23 22:15] LABS: Blood Morphology Comment NOT SEEN (NOT SEEN); Platelet Estimate DECR; White Blood Cell Scan OK (OK)
--- NOTE | 2023-01-24 00:20 | EDPHYS ---
Physician Documentation [facility] Name: Michael Laboy Age: 82 yrs Sex: Male : 1940 Arrival Date: 01/23/2023 Time: 19:13 Bed 17 Private MD: ED Physician Lala Renee HPI: 01/23 20:10 This 82 yrs old Male presents to ER via Ambulatory with complaints of Bee Sting, jmm Vomiting, Abdominal Pain. 20:10 The patient presents with abdominal pain. Onset: The symptoms/episode began/occurred jmm acutely, today. Is an 82-year-old male with history of hypertension and hyperlipidemia the presents emerged part with complaints of abdominal pain, vomiting, diarrhea. This began approximately 2 to 3 hours after multiple bee stings while out mowing his yard. Patient denies shortness of breath, swelling sensation to his throat. Historical: - Allergies: 20:05 PENICILLINS; ll3 - Home Meds: 20:09 pravastatin 40 mg oral tablet once [Active]; amlodipine oral [Active]; ll3 - PMHx: 20:05 Hypercholesterolemia; Hypertension; ll3 - Immunization history:: Client reports receiving the 2nd dose of the Covid vaccine. - Social history:: Smoking status: Patient denies any tobacco usage or history of. ROS: 20:10 Constitutional: Negative for fever, chills, and weight loss, Cardiovascular: Negative jmm for chest pain, palpitations, and edema, Respiratory: Negative for shortness of breath, cough, wheezing, and pleuritic chest pain. 20:10 Abdomen/GI: Positive for abdominal pain, nausea and vomiting, diarrhea. 20:10 All other systems are negative. Exam: 20:10 Constitutional: This is a well developed, well nourished patient who is awake, alert, jmm and in no acute distress. Head/Face: atraumatic. Eyes: EOMI, no conjunctival erythema appreciated ENT: Moist Mucus Membranes Neck: Trachea midline, Supple Chest/axilla: Normal chest wall appearance and motion. Cardiovascular: Regular rate and rhythm. No edema appreciated Respiratory: Normal respirations, no respiratory distress appreciated 20:10 Back: Normal ROM Skin: General appearance color normal MS/ Extremity: Moves all extremities, no obvious deformities appreciated, no edema noted to the lower extremities Neuro: Awake and alert Psych: Behavior is normal, Mood is normal, Patient is cooperative and pleasant 20:10 Abdomen/GI: Inspection: abdomen appears normal, Bowel sounds: normal, Palpation: soft, nontender, in all quadrants. Vital Signs: 20:01 BP 156 / 86; Pulse 90; Resp 17; Temp 98.7(O); Pulse Ox 98% on R/A; Weight 86.18 kg (R); ll3 Height 5 ft. 9 in. (R); 21:35 BP 151 / 76; Pulse 88; Resp 18 S; Pulse Ox 96% on R/A; as6 23:43 BP 142 / 60; Pulse 83; Resp 18 S; Pulse Ox 97% on R/A; as6 20:01 Body Mass Index 28.06 (86.18 kg, 175.26 cm) ll3 MDM: 20:10 Patient medically screened. [facility] 01/24 00:18 Data reviewed: vital signs, nurses notes. [facility] 00:31 Differential diagnosis: bowel obstruction, diverticulitis, gastritis, Mesenteric [facility] ischemia or infarction, non-specific abd pain, pancreatitis, Peritonitis. I considered the following discharge prescriptions or medication management in the emergency department Medications were administered in the Emergency Department. See MAR. Counseling: I had a detailed discussion with the patient and/or guardian regarding: the historical points, exam findings, and any diagnostic results supporting the discharge/admit diagnosis, lab results, the need for outpatient follow up, to return to the emergency department if symptoms worsen or persist or if there are any questions or concerns that arise at home. ED course: Patient states feeling much better after IV fluids, antiemetics, steroids. Patient has no abdominal pain on palpation. I do not currently suspect an acute intra-abdominal process.. 01/23 20:11 Order name: CBC with Diff; Complete Time: 22:18 [facility] 01/23 20:11 Order name: CMP; Complete Time: 22:18 [facility] 01/23 20:11 Order name: Lipase; Complete Time: 22:18 [facility] 01/23 22:15 Order name: CBC Smear Scan; Complete Time: 22:18 [facility] 01/23 20:11 Order name: IV Saline Lock; Complete Time: 22:22 [facility] 01/23 20:11 Order name: Labs collected and sent; Complete Time: 21:18 [facility] Administered Medications: 01/23 21:18 Drug: Ondansetron IVP 4 mg Route: IVP; Site: left antecubital; as01/24 00:30 Follow up: Response: No adverse reaction as6 01/23 22:05 Not Given (no IV accesss): Famotidine IVP 20 mg IVP once; dilute with 10 mL 0.9% NaCl; as6 give over 2 minutes 22:05 Not Given (Other Intervention Used): Decadron - Dexamethasone IVP 10 mg IVP once as6 22:05 Drug: Dexamethasone IM 10 mg Route: IM; Site: right deltoid; 01/24 00:30 Follow up: Response: No adverse reaction as6 01/23 22:06 Not Given (no IV accesss): NS 0.9% IV 1000 ml IV at 1 bolus Per protocol; 1000 mL bolus 22:24 Drug: NS 0.9% IV 1000 ml Route: IV; Rate: 1 bolus; Site: right antecubital; 01/24 00:30 Follow up: Response: No adverse reaction; IV Status: Completed infusion; IV Intake: as6 1000ml 01/23 22:29 Drug: Famotidine IVP 20 mg Route: IVP; Site: right antecubital; 01/24 00:30 Follow up: Response: No adverse reaction as6 Disposition Summary: 01/24/23 00:19 Discharge Ordered Location: Home [facility] Condition: Stable [facility] Diagnosis - Hymenoptera envenomation [facility] Followup: [facility] - With: Private Physician - When: 2 - 3 days - Reason: Recheck today's complaints, Continuance of care, Re-evaluation by your physician Discharge Instructions: - Discharge Summary Sheet [facility] - Bee, Wasp, or Hornet Sting, Adult [facility] Forms: - Medication Reconciliation Form [facility] - Thank You Letter [facility] - Antibiotic Education [facility] - Prescription Opioid Use [facility] Prescriptions: - ondansetron 4 mg Oral Tablet,disintegrating - take 1 tablet by ORAL route every 4-6 hours As needed; 20 tablet; Refills: 0, [facility] Product Selection Permitted - Pepcid 20 mg Oral Tablet - take 1 tablet by ORAL route every 12 hours for 10 days; 20 tablet; Refills: 0, [facility] Product Selection Permitted - Medrol (Adolfo) 4 mg Oral Tablets, Dose Pack - take 1 tablet by ORAL route as directed - follow package instructions; 1 nancy packet; Refills: 0, Product Selection Permitted Signatures: Dispatcher [employer] Stalin Tilley PA PA jmm Slawson, Ashby RN RN as6 Bessie Mayberry RN RN ll3
--- NOTE | 2023-01-24 00:20 | ER ---
Nurse's Notes [facility] Name: Michael Laboy Age: 82 yrs Sex: Male : 1940 Arrival Date: 01/23/2023 Time: 19:13 Bed 17 Private MD: Diagnosis: Hymenoptera envenomation Presentation: 01/23 20:01 Chief complaint: Patient states: States was moving and got stung by a "swarm of bees", ll3 states started having N/V/D ever since. Coronavirus screen: Vaccine status: Patient reports receiving the 1st dose of the Covid vaccine. nausea, vomiting. Ebola Screen: No symptoms or risks identified at this time. Onset: The symptoms/episode began/occurred at 4:30 PM. Anaphylaxis evaluation, no signs or symptoms of anaphylaxis were noted. Initial Sepsis Screen: Does the patient meet any 2 criteria? No. Patient's initial sepsis screen is negative. Does the patient have a suspected source of infection? No. Patient's initial sepsis screen is negative. Risk Assessment: Do you want to hurt yourself or someone else? Patient reports no desire to harm self or others. Onset of symptoms was January 23, 2023 at 16:30. 20:01 Method Of Arrival: Ambulatory ll3 20:01 Acuity: ELIZABETH 3 ll3 Historical: - Allergies: 20:05 PENICILLINS; ll3 - Home Meds: 20:09 pravastatin 40 mg oral tablet once [Active]; amlodipine oral [Active]; ll3 - PMHx: 20:05 Hypercholesterolemia; Hypertension; ll3 - Immunization history:: Client reports receiving the 2nd dose of the Covid vaccine. - Social history:: Smoking status: Patient denies any tobacco usage or history of. Screenin:09 [facility] ED Fall Risk Assessment (Adult) Score/Fall Risk Level 0 - 2 = Low Risk. Abuse as6 screen: Denies threats or abuse. Denies injuries from another. Nutritional screening: No deficits noted. Tuberculosis screening: No symptoms or risk factors identified. Assessment: 21:20 General: Appears in no apparent distress. Behavior is calm, cooperative. Pain: Denies as6 pain. Neuro: Level of Consciousness is awake, alert, obeys commands, Oriented to person, place, time, situation. Cardiovascular: Capillary refill < 3 seconds Patient's skin is warm and dry. Respiratory: Airway is patent Trachea midline Respiratory effort is even, unlabored, Respiratory pattern is regular, symmetrical, Denies shortness of breath. Derm: scattered be stings to face and head. Vital Signs: 20:01 BP 156 / 86; Pulse 90; Resp 17; Temp 98.7(O); Pulse Ox 98% on R/A; Weight 86.18 kg (R); ll3 Height 5 ft. 9 in. (R); 21:35 BP 151 / 76; Pulse 88; Resp 18 S; Pulse Ox 96% on R/A; as6 23:43 BP 142 / 60; Pulse 83; Resp 18 S; Pulse Ox 97% on R/A; as6 20:01 Body Mass Index 28.06 (86.18 kg, 175.26 cm) 3 ED Course: 19:13 Patient arrived in ED. ja 19:50 Stalin Hutson PA is PHCP. [facility] 19:50 Lala Renee MD is Attending Physician. [facility] 20:05 Triage completed. 3 20:05 Arm band placed on Patient placed in waiting room, Patient notified of wait time. 3 20:36 Rogers Stephens, ROGELIO is Primary Nurse. as6 22:09 Bed in low position. Call light in reach. as6 22:25 Inserted saline lock: 20 gauge in right antecubital area, using aseptic technique. bb Missed attempt(s): 20 gauge in right antecubital area. 23:43 No provider procedures requiring assistance completed. as6 01/24 00:31 IV discontinued, intact, bleeding controlled, No redness/swelling at site. Pressure as6 dressing applied. Administered Medications: 01/23 21:18 Drug: Ondansetron IVP 4 mg Route: IVP; Site: left antecubital; as6 01/24 00:30 Follow up: Response: No adverse reaction as6 01/23 22:05 Not Given (no IV accesss): Famotidine IVP 20 mg IVP once; dilute with 10 mL 0.9% NaCl; as6 give over 2 minutes 22:05 Not Given (Other Intervention Used): Decadron - Dexamethasone IVP 10 mg IVP once as6 22:05 Drug: Dexamethasone IM 10 mg Route: IM; Site: right deltoid; as6 01/24 00:30 Follow up: Response: No adverse reaction as6 01/23 22:06 Not Given (no IV accesss): NS 0.9% IV 1000 ml IV at 1 bolus Per protocol; 1000 mL bolus as6 22:24 Drug: NS 0.9% IV 1000 ml Route: IV; Rate: 1 bolus; Site: right antecubital; as6 01/24 00:30 Follow up: Response: No adverse reaction; IV Status: Completed infusion; IV Intake: as6 1000ml 01/23 22:29 Drug: Famotidine IVP 20 mg Route: IVP; Site: right antecubital; as6 01/24 00:30 Follow up: Response: No adverse reaction as6 Medication: 01/23 22:08 VIS not applicable for this client. as6 Intake: 01/24 00:30 IV: 1000ml; Total: 1000ml. as6 Outcome: 00:19 Discharge ordered by MD. cruz 00:31 Discharged to home ambulatory, with family. as6 00:31 Condition: stable 00:31 Discharge instructions given to patient, family, Instructed on discharge instructions, follow up and referral plans. medication usage, Demonstrated understanding of instructions, follow-up care, medications, Prescriptions given X 3. 00:31 Patient left the ED. as6 Signatures: Stalin Hutson PA PA jmm Ballard, Brenda, RN RN bb Alexander, Jessica ja2 Slawson, Ashby, RN RN as6 Bessie Mayberry RN RN ll3
[2023-01-24 01:00] VITALS: TEMP 98.7
[2023-01-24 01:11] VITALS: BP 142/60; O2SAT 97
== END 2023-01-24 00:31 | disposition home or self-care (01) ==
LOC: ER 19:08
DX: T63.441A Toxic effect of venom of bees, accidental (unintentional), initial encounter (principal); R10.9 Unspecified abdominal pain; I10 Essential (primary) hypertension; E78.00 Pure hypercholesterolemia, unspecified; Z88.0 Allergy status to penicillin
CPT/HCPCS: 85025; 36415; 83690; 80053; 96372; 99283; J1100 ×2; J2405; J7030

== ENCOUNTER 2025-01-17 21:05 | Emergency (ER) | payer OTHER, BC ==
--- NOTE | 2025-01-17 22:27 | RAD REPORT ---
EXAMINATION: ONE VIEW CHEST XR CLINICAL INDICATION: CHEST PAIN TECHNIQUE: Frontal chest projection is submitted. Examination is limited by patient positioning and t echnique. COMPARISON: 09/06/2018 FINDINGS: The lungs are underinflated with mild to moderate bilateral pulmonary opacities suggesting pulmonary edema. The heart is upper limit of normal in size. No displaced fractures identified. IMPRESSION: Underinflated lungs with vascular crowding, mild pulmonary edema possible.
[2025-01-17] MEDS ORDERED: LIDOCAINE 4% PATCH ONE (22:54)
[2025-01-17] MEDS ORDERED: KETOROLAC 30 MG/ML INJ ONE (22:54)
[2025-01-17 23:32] LABS: Absolute Lymphocytes (CBC) 0.8 K/uL (0.7-4.9); Absolute Monocytes 0.9 K/uL (0.1-1.3); Absolute Neutrophil 9.9 K/uL (1.8-8.0); Basophils % 0.3 % (0-1.3); Eosinophils % 0.4 % (0-4.4); Hematocrit 39.4 % (39.6-49.0); Hemoglobin 13.1 g/dL (13.6-17.9); Lymphocytes % 6.6 % (15.3-44.8); MCH 31.9 pg (27.0-35.0); MCHC 33.3 g/dL (32.0-36.0); MCV 95.6 fL (80-100); MPV 8.3 fL (7.6-11.3); Monocytes % 8.1 % (3.3-12.3); Neutrophils % 84.6 % (41.7-73.7); Platelets 169 thou/uL (152-406); RBC Red Blood Cell Count 4.12 M/uL (4.33-5.43); Red Cell Distribution Width 13.4 % (12.1-15.2)
[2025-01-17 23:59] LABS: Troponin High Sensitivity 46.3 pg/mL (<58.9)
--- NOTE | 2025-01-18 01:19 | ER ---
Nurse's Notes [facility] Name: Michael Laboy Age: 84 yrs Sex: Male : 1940 Arrival Date: 01/17/2025 Time: 21:05 Bed 16 Private MD: Diagnosis: Chest pain, unspecified Presentation: 01/17 21:25 Chief complaint: Patient states: I have had some chest tightness for 2 hours. bm8 Coronavirus screen: At this time, the client does not indicate any symptoms associated with coronavirus-19. Ebola Screen: Patient negative for fever greater than or equal to 101.5 degrees Fahrenheit, and additional compatible Ebola Virus Disease symptoms Patient denies exposure to infectious person. Patient denies travel to an Ebola-affected area in the 21 days before illness onset. No symptoms or risks identified at this time. Initial Sepsis Screen: Does the patient meet any 2 criteria? No. Patient's initial sepsis screen is negative. Does the patient have a suspected source of infection? No. Patient's initial sepsis screen is negative. Risk Assessment: Do you want to hurt yourself or someone else? Patient reports no desire to harm self or others. Onset of symptoms was January 17, 2025 at 19:30. 21:25 Method Of Arrival: Ambulatory bm8 21:25 Acuity: ELIZABETH 3 bm8 Triage Assessment: 21:26 General: Appears in no apparent distress. comfortable, Behavior is calm, cooperative, bm8 appropriate for age. Pain: Complains of pain in chest. Pain: Complains of pain in chest Pain currently is 7 out of 10 on a pain scale. Pain: Quality of pain is described as tightness and reproducable. EENT: No deficits noted. No signs and/or symptoms were reported regarding the EENT system. Neuro: No deficits noted. Level of Consciousness is awake, alert, obeys commands, Oriented to person, place, time, situation, Appropriate for age. Cardiovascular: Heart tones S1 S2 present Capillary refill < 3 seconds in bilateral fingers Patient's skin is warm and dry. Respiratory: Airway is patent Trachea midline Respiratory effort is even, unlabored, Respiratory pattern is regular, symmetrical, Breath sounds are clear bilaterally. GI: No signs and/or symptoms were reported involving the gastrointestinal system. : No signs and/or symptoms were reported regarding the genitourinary system. Derm: No signs and/or symptoms reported regarding the dermatologic system. Musculoskeletal: No signs and/or symptoms reported regarding the musculoskeletal system. Historical: - Allergies: 21: PENICILLINS; bm8 - Home Meds: 21: amlodipine oral [Active]; lisinopril Oral [Active]; pravastatin 40 mg Oral tablet once bm8 [Active]; - PMHx: 21: Hypercholesterolemia; Hypertension; bm8 - PSHx: 21: Unable to Obtain; bm8 - Immunization history:: Adult Immunizations up to date. - Infectious Disease History:: Denies. - Social history:: Smoking status: Patient denies any tobacco usage or history of. Screenin/16 02:07 [facility] ED Fall Risk Assessment (Adult) History of falling in the last 3 months, cp4 including since admission No falls in past 3 months (0 pts) Confusion or Disorientation No (0 pts) Intoxicated or Sedated No (0 pts) Impaired Gait No (0 pts) Mobility Assist Device Used No (0 pt) Altered Elimination No (0 pt) Score/Fall Risk Level 0 - 2 = Low Risk Oriented to surroundings, Maintained a safe environment, Assessed \T\ reinforced patient's understanding of fall precautions, Hourly rounding (assess needs \T\ fall precautionary measures) done. Abuse screen: Denies threats or abuse. Denies injuries from another. Nutritional screening: No deficits noted. Tuberculosis screening: No symptoms or risk factors identified. Assessment: 00:02 General: Appears in no apparent distress. uncomfortable, Behavior is calm, cooperative, cp4 appropriate for age. Pain: Complains of pain in chest Pain does not radiate. Pain currently is 7 out of 10 on a pain scale. Pain began 2 hours ago. Neuro: Level of Consciousness is awake, alert, obeys commands, Oriented to person, place, time, situation. Cardiovascular: Heart tones S1 S2 Patient's skin is warm and dry. Rhythm is sinus rhythm. Respiratory: Airway is patent Respiratory effort is even, unlabored. GI: No signs and/or symptoms were reported involving the gastrointestinal system. : No signs and/or symptoms were reported regarding the genitourinary system. EENT: No signs and/or symptoms were reported regarding the EENT system. Derm: No signs and/or symptoms reported regarding the dermatologic system. Musculoskeletal: No signs and/or symptoms reported regarding the musculoskeletal system. Vital Signs: 01/17 21:25 BP 166 / 89; Pulse 71; Resp 18; Temp 98; Pulse Ox 96% ; Weight 86.18 kg; Height 5 ft. 8 bm8 in. ; Pain 7/10; 23:00 BP 145 / 66; Pulse 67; Resp 18; Pulse Ox 96% ; cp4 01/18 00:03 BP 138 / 66; Pulse 68; Resp 18; Pulse Ox 96% ; cp4 01:14 BP 143 / 69; Pulse 84; Resp 18; Pulse Ox 96% ; cp4 01/17 21:25 Body Mass Index 28.89 (86.18 kg, 172.72 cm) bm8 01/17 21:25 Pain Scale: Adult bm8 ED Course: 01/17 21:07 Patient arrived in ED. jj6 21:09 Kenyon Nunes MD is Attending Physician. ec2 21:26 Triage completed. bm8 21:26 Arm band placed on right wrist. bm8 22:20 XRAY Chest (1 view) In Process Unspecified. EDMS 22:37 Alma Owens is Primary Nurse. cp4 22:49 Inserted saline lock: 20 gauge in left antecubital area, using aseptic technique. Blood af3 collected. Flushed with 10 mL NS. 01/18 02:07 Placed in gown. Bed in low position. Call light in reach. Side rails up X2. Provided cp4 Education on: chest pain. Client placed on continuous cardiac and pulse oximetry monitoring. NIBP monitoring applied. computer installation engineer on. Pulse ox on. NIBP on. 02:07 No provider procedures requiring assistance completed. intact, bleeding controlled, No cp4 redness/swelling at site. Pressure dressing applied. Patient maintains SpO2 saturation greater than 95% on room air. Administered Medications: 01/17 22:59 Drug: Ketorolac IVP 10 mg 10 mg IVP once Route: IVP; Site: left antecubital; cp4 01/18 00:01 Follow up: Response: No adverse reaction; Pain is decreased cp4 01/17 23:00 Drug: Lidoderm Topical Patch 5 % (700 mg/patch) 1 patches Topical once; leave on for 12 cp4 hours; cover most painful area; may cut into smaller pieces Route: Topical; Site: anterior chest wall; Medication: 01/18 02:07 VIS not applicable for this client. cp4 Outcome: 01:19 Discharge ordered by . ec2 01:35 Discharge ordered by MD. ec2 02:07 Discharged to home ambulatory, cp4 02:07 Condition: stable 02:07 Discharge instructions given to patient, family, Instructed on discharge instructions, follow up and referral plans. Demonstrated understanding of instructions, follow-up care, 02:14 Patient left the ED. cp4 Signatures: Dispatcher [employer] Anastasia Haj6 Kenyon Nunes MD MD ec2 Alma Owens cp4 Alvaro Chow, RN RN bm8 Nelida Garcia 3
--- NOTE | 2025-01-18 01:19 | EDPHYS ---
Physician Documentation [facility] Name: Michael Laboy Age: 84 yrs Sex: Male : 1940 Arrival Date: 01/17/2025 Time: 21:05 Bed 16 Private MD: ED Physician Kenyon Nunes HPI: 01/17 21:24 This 84 yrs old Male presents to ER via Unassigned with complaints of Chest ec2 Pain, High Blood Pressure. 21:24 Patient with history of hypertension hyperlipidemia arrives today for left reproducible ec2 chest wall pain is worse with movement and pressing on the area. . Historical: - Allergies: 21:26 PENICILLINS; bm8 - Home Meds: 21:26 amlodipine oral [Active]; lisinopril Oral [Active]; pravastatin 40 mg Oral tablet once bm8 [Active]; - PMHx: 21:26 Hypercholesterolemia; Hypertension; bm8 - PSHx: 21:26 Unable to Obtain; bm8 - Immunization history:: Adult Immunizations up to date. - Infectious Disease History:: Denies. - Social history:: Smoking status: Patient denies any tobacco usage or history of. ROS: 21:24 Constitutional: as per hpi ec2 Exam: 21:24 Constitutional: GEN: NAD Head: atraumatic Eyes: EOMI Ears: External ears are ec2 normal. CV: regular rate LUNGS: no respiratory distress, breath sounds present in all lung king. ABD: non-distended SKIN: no evidence of rashes MSK: no evidence of trauma, reproducible chest wall TTP without deformities or crepitus appreciated. Vital Signs: 21:25 BP 166 / 89; Pulse 71; Resp 18; Temp 98; Pulse Ox 96% ; Weight 86.18 kg; Height 5 ft. 8 bm8 in. ; Pain 7/10; 23:00 BP 145 / 66; Pulse 67; Resp 18; Pulse Ox 96% ; cp4 01/18 00:03 BP 138 / 66; Pulse 68; Resp 18; Pulse Ox 96% ; cp4 01:14 BP 143 / 69; Pulse 84; Resp 18; Pulse Ox 96% ; cp4 01/17 21:25 Body Mass Index 28.89 (86.18 kg, 172.72 cm) bm8 01/17 21:25 Pain Scale: Adult bm8 MDM: 01/17 21:25 Data reviewed: vital signs, nurses notes. ED course: Patient arrives today for chest ec2 pain. Examination yields reproducible chest wall TTP. Will obtain cardiac workup. EKG obtained, independently reviewed and interpreted by me, shows normal sinus rhythm, rate of 77, no acute ST segment elevations, intervals are nonactionable. Right bundle branch block noted. Will give the patient a Lidoderm patch as well as Toradol for his pain. DDx include processes such as ACS, costochondritis, pulmonary pathology such as infection.. 21:46 Medical Screening Exam initiated ec2 01/18 00:06 ED course: Metabolic profile shows kidney disease. CBC with minimal leukocytosis. Chest ec2 x-ray there is no acute intrathoracic process, troponin is within normal ranges. Will obtain repeat EKG and troponin at 2-hour shahla.. 01:01 ED course: Repeat EKG independently reviewed and interpreted by me, shows normal sinus ec2 rhythm, rate of 82, no acute ST segment elevations, right bundle branch block noted.. 01:18 ED course: On reassessment patient is well-appearing, reports improvement in pain.. ec2 01:35 ED course: Repeat troponin with no marked change. Will discharge home. Return ec2 precautions given.. 01/17 21:22 Order name: Basic Metabolic Panel; Complete Time: 00:05 ec2 01/17 21:22 Order name: CBC with Diff; Complete Time: 00:05 ec2 01/17 21:22 Order name: Troponin HS; Complete Time: 00:05 ec2 01/18 00:51 Order name: Troponin High Sensitivity; Complete Time: 01:35 cp4 01/17 21:22 Order name: XRAY Chest (1 view); Complete Time: 23:30 ec2 01/17 21:22 Order name: EKG; Complete Time: 21:22 ec2 01/17 21:22 Order name: Cardiac monitoring; Complete Time: 22:40 ec2 01/17 21:22 Order name: EKG - Nurse/Tech; Complete Time: 22:39 ec2 01/17 21:22 Order name: IV Saline Lock; Complete Time: 22:48 ec2 01/17 21:22 Order name: Labs collected and sent; Complete Time: 22:48 ec2 01/17 21:22 Order name: O2 Per Protocol; Complete Time: 22:40 ec2 01/17 21:22 Order name: O2 Sat Monitoring; Complete Time: 22:40 ec2 01/18 00:06 Order name: Misc. Order: repeat ekg/trop at 0100; Complete Time: 00:53 ec2 Administered Medications: 01/17 22:59 Drug: Ketorolac IVP 10 mg 10 mg IVP once Route: IVP; Site: left antecubital; cp4 01/18 00:01 Follow up: Response: No adverse reaction; Pain is decreased cp4 01/17 23:00 Drug: Lidoderm Topical Patch 5 % (700 mg/patch) 1 patches Topical once; leave on for 12 cp4 hours; cover most painful area; may cut into smaller pieces Route: Topical; Site: anterior chest wall; Disposition Summary: 01/18/25 01:35 Discharge Ordered Notes: Location: Home(01/18/25 01:35) ec2 Condition: Stable(01/18/25 01:35) ec2 Diagnosis - Chest pain, unspecified(01/18/25 01:35) ec2 Followup: ec2 - With: Private Physician - When: - Reason: Re-evaluation by your physician Discharge Instructions: - Discharge Summary Sheet ec2 - Nonspecific Chest Pain, Adult ec2 Forms: - Medication Reconciliation Form ec2 - Antibiotic Education ec2 - Prescription Opioid Use ec2 - Patient Portal Instructions ec2 - Leadership Thank You Letter ec2 Signatures: Dispatcher [employer] EDKenyon Mcgowan MD MD ec2 Alma Owens cp4 Alvaro Chow RN RN bm8 Corrections: (The following items were deleted from the chart) 01/18 00:51 00:51 Troponin High Sensitivity+C.LAB.BRZ ordered. EDMS EDMS 01:34 01:19 Home ec2 ec2 01:34 01:19 Stable ec2 ec2 01:34 01:19 Chest pain, unspecified ec2 ec2
[2025-01-18 02:21] VITALS: TEMP 98; O2SAT 96
[2025-01-18 02:25] VITALS: BP 143/69
== END 2025-01-18 02:14 | disposition home or self-care (01) ==
LOC: ER 21:05
DX: R07.89 Other chest pain (principal); I10 Essential (primary) hypertension; E78.5 Hyperlipidemia, unspecified
CPT/HCPCS: 93005 ×2; 85025; 80048; 36415; 84484 ×2; 71045; 96374; 99285; J2003